=== PATIENT | male | born 1980 | race Caucasian/White ===

== ENCOUNTER 2022-07-23 13:09 | Inpatient (IN) ==
--- NOTE | 2022-07-23 13:57 | Emergency Department Note ---
Impression & Plan Schizophrenia Admission/302 ED Provider Note HPI: The patient is a 42-year-old gentleman with history of schizophrenia, presents emergency department for evaluation after 302 was filed by his father. Patient states he lives with his mother and his father. He tells me he does not know why he is here and he was brought by police. He was apparently brought in after 302 was filed by his father, states the patient has been having more aggressive outbursts at home, he has not followed up with his psychiatry appointments as they were scheduled. Patient states that he has been feeling more stressed at home recently and he does admit to having aggressive outburst but denies any intent to harm himself or anyone else. On arrival here to the ED the patient is in no acute distress. He does appear to be responding to some internal stimuli at times with delayed response to my questioning however he does answer my questions appropriately. He states he is hearing voices that "harassed me" but he states they are not telling him to do anything such as harm himself. ROS: - Per HPI *Outpatient medications and allergy history reviewed. *Pertinent external medical records reviewed. PE: General: Alert HEENT: Normocephalic, trachea midline Eyes: Extraocular eye movement is intact, no scleral erythema Pulmonary: Clear to auscultation bilaterally, no wheezing Cardio: Regular rate and rhythm GI: Abdomen is soft, nontender : No suprapubic tenderness MSK: No evidence of trauma or malformation of the extremities, no edema Skin: No evidence of rash Neuro: Alert, no focal deficits Psychiatric: Cooperative, slight delay in questioning response, appears to be re sponding to internal stimuli Interventions provided in ED: -Ativan Medical Decision Making: The patient is a 42-year-old male with history of schizophrenia, presents emergency department with a chief complaint of 302 that was filed by father. Father and mother who the patient lives with apparently no longer feels safe with the patient at home. He has been exhibiting threatening behavior recently and has had frequent aggressive outbursts at home. Patient states he is hearing voices that are making him feel "stressed" and he is also saying that the voices are saying negative things but they are not commanding him to commit harm to himself or anyone else. On arrival here to the ED the patient is calm, he is a somewhat limited historian and does not display great insight into his current condition, states he does not know why he is here. He states he is hearing voices. He does have delay with answers to my questions and does appear to be responding to internal stimuli during my evaluation. 302 was filed by the patient's father, parents were contacted by case management following medical clearance here in the ED, they state they absolutely do not feel comfortable with the patient returning home, patient does live with them primarily. They state the patient has had increasing aggressive outbursts at home, they fear for their own safety and they feel the patient does need inpatient care. Patient does not been aggressive with staff here although given his history and reliability of the parents, it does appear appropriate that 302 be upheld. Patient was given a dose of oral Ativan while here in the ED as he was beginning to feel anxious, 302 was upheld and signed by myself. Bed search will be initiated. Patient was signed out to my colleague at change of shift pending ongoing bed search and further care. Diagnosis: 1. Acute psychosis 2. Paranoid schizophrenia 3. Noncompliance with psychiatric medical visits 4. Threatening behavior towards parents/302 Disposition: Admission/302 Aaron Osborne DO Emergency Medicine Past Med/Surg History Medical History (Updated 07/23/22 @ 16:13 by Aaron Osborne DO) Lyme disease Schizophrenia Social History Smoking Status: Never smoker Communication Ability: Effective Current Living Situation: Family Feels Safe at Home: Yes Allergies Allergies Allergy/AdvReac Type Severity Reaction Status Date / Time wheat AdvReac Unknown Verified 07/23/22 14:39 Home Meds Home Medications Medication Instructions Recorded Confirmed olanzapine 5 mg tablet 5 mg PO DAILY PRN Hallucinations 07/23/22 07/23/22 paliperidone palm (3-month) 819 819 mg IM DIRECTED 07/23/22 07/23/22 mg/2.63 mL intramuscular syringe (Invega Heidyza) Results & Data (ED) Vital Signs Vital Signs - 24 hr 07/23/22 13:09 Temperature 36.6 C Temperature Source Oral Pulse Rate 86 Respiratory Rate 19 Respiratory Effort / Characteristics Non-Labored Spontaneous Respiratory Depth Normal Blood Pressure 130/81 Blood Pressure Mean 97 Pulse Oximetry 96 Oxygen Delivery Method Room Air Sepsis Recent Fever Within 48 Hours No Sepsis New/Unexplained Change in Mental Status No Sepsis Action Taken by Nursing No Action Required Laboratory Data 07/23/22 14:28 07/23/22 14:28 Lab Results 07/23/22 07/23/22 07/23/22 Range/Units 13:38 13:38 14:11 WBC (4.8-10.8) K/ul RBC (4.63-6.08) M/uL Hgb (14.0-18.0) g/dl Hct (40.1-51.0) % MCV (80.0-100.0) fL MCH (25.0-34.0) pg MCHC (32.0-36.0) g/dL RDW Std Deviation (36.4-46.3) fL RDW Coeff of Murphy (11.5-14.5) % Plt Count (130-400) K/uL MPV (9.4-12.4) fL Immature Gran % (Auto) % Neut % (Auto) % Lymph % (Auto) % [place] % (Auto) % Eos % (Auto) % Baso % (Auto) % Neut # (Auto) (1.4-6.5) K/uL Lymph # (Auto) (1.2-3.4) K/uL [place] # (Auto) (0.24-0.82) K/uL Eos # (Auto) (0-0.50) K/uL Baso # (Auto) (0-0.2) K/uL Immature Gran # (Auto) (0.00-0.02) K/uL Sodium (136-145) mmol/L Potassium (3.5-5.1) mmol/L Chloride (98-107) mmol/L Carbon Dioxide (21-32) mmol/L Anion Gap (3-11) BUN (6-23) mg/dl Creatinine (0.6-1.4) mg/dl Est Cr Clr Drug Dosing ml/min Est GFR ( Amer) ml/min Est GFR (Non-Af Amer) ml/min BUN/Creatinine Ratio (10-20) Glucose (70-99(Fasting)) mg/dl Calcium (8.5-10.1) mg/dl Total Bilirubin (0.2-1.0) mg/dl AST (13-39) U/L ALT (7-52) U/L Alkaline Phosphatase (34-104) U/L Total Protein (6.0-8.3) gm/dl Albumin (3.4-5.0) gm/dl Globulin (2.5-4.0) gm/dl Albumin/Globulin Ratio (0.9-2) TSH (0.300-4.500) uIu/ml Urine Color Yellow Urine Appearance Clear (Clear) Urine pH 6.5 (4.5-7.5) Ur Specific Cranks 1.010 (1.000-1.030) Urine Protein Negative (Negative) Urine Glucose (UA) Negative (Negative) Urine Ketones 1+ H (Negative) Urine Blood Negative (Negative) Urine Nitrite Negative (Negative) Urine Bilirubin Negative (Negative) Urine Urobilinogen Negative (Negative) Ur Leukocyte Esterase Negative (Negative) Salicylates (3.0-30) mg/dl Urine Opiates Screen Neg (Neg) Ur Methadone, Qual Neg (Neg) Acetaminophen (10-30) ug/ml Urine Barbiturates Neg (Neg) Ur Phencyclidine (PCP) Neg (Neg) U Amphetamin/Meth Scrn Neg (Neg) MDMA (Ecstasy) Screen Neg (Neg) U Benzodiazepines Scrn Neg (Neg) Ur Cocaine Metabolite Neg (Neg) U Marijuana (THC) Screen Pos H (Neg) Ethyl Alcohol mg/dL (<10.0) mg/dl SARS-CoV-2, RNA, NAAT NEGATIVE (NEGATIVE) 07/23/22 07/23/22 07/23/22 Range/Units 14:28 14:28 14:28 WBC 8.53 (4.8-10.8) K/ul RBC 5.34 (4.63-6.08) M/uL Hgb 15.4 (14.0-18.0) g/dl Hct 44.9 (40.1-51.0) % MCV 84.1 (80.0-100.0) fL MCH 28.8 (25.0-34.0) pg MCHC 34.3 (32.0-36.0) g/dL RDW Std Deviation 38.6 (36.4-46.3) fL RDW Coeff of Murphy 12.8 (11.5-14.5) % Plt Count 215 (130-400) K/uL MPV 10.2 (9.4-12.4) fL Immature Gran % (Auto) 0.2 % Neut % (Auto) 74.4 % Lymph % (Auto) 18.2 % [place] % (Auto) 6.6 % Eos % (Auto) 0.4 % Baso % (Auto) 0.2 % Neut # (Auto) 6.35 (1.4-6.5) K/uL Lymph # (Auto) 1.55 (1.2-3.4) K/uL [place] # (Auto) 0.56 (0.24-0.82) K/uL Eos # (Auto) 0.03 (0-0.50) K/uL Baso # (Auto) 0.02 (0-0.2) K/uL Immature Gran # (Auto) 0.02 (0.00-0.02) K/uL Sodium 140 (136-145) mmol/L Potassium 4.1 (3.5-5.1) mmol/L Chloride 106 (98-107) mmol/L Carbon Dioxide 28 (21-32) mmol/L Anion Gap 6 (3-11) BUN 9 (6-23) mg/dl Creatinine 0.86 (0.6-1.4) mg/dl Est Cr Clr Drug Dosing 120.4 ml/min Est GFR ( Amer) 124.8 ml/min Est GFR (Non-Af Amer) 107.7 ml/min BUN/Creatinine Ratio 10.5 (10-20) Glucose 104 H (70-99(Fasting)) mg/dl Calcium 9.5 (8.5-10.1) mg/dl Total Bilirubin 0.6 (0.2-1.0) mg/dl AST 23 (13-39) U/L ALT 17 (7-52) U/L Alkaline Phosphatase 49 (34-104) U/L Total Protein 7.4 (6.0-8.3) gm/dl Albumin 4.4 (3.4-5.0) gm/dl Globulin 3.0 (2.5-4.0) gm/dl Albumin/Globulin Ratio 1.5 (0.9-2) TSH 2.189 (0.300-4.500) uIu/ml Urine Color Urine Appearance (Clear) Urine pH (4.5-7.5) Ur Specific Cranks (1.000-1.030) Urine Protein (Negative) Urine Glucose (UA) (Negative) Urine Ketones (Negative) Urine Blood (Negative) Urine Nitrite (Negative) Urine Bilirubin (Negative) Urine Urobilinogen (Negative) Ur Leukocyte Esterase (Negative) Salicylates (3.0-30) mg/dl Urine Opiates Screen (Neg) Ur Methadone, Qual (Neg) Acetaminophen (10-30) ug/ml Urine Barbiturates (Neg) Ur Phencyclidine (PCP) (Neg) U Amphetamin/Meth Scrn (Neg) MDMA (Ecstasy) Screen (Neg) U Benzodiazepines Scrn (Neg) Ur Cocaine Metabolite (Neg) U Marijuana (THC) Screen (Neg) Ethyl Alcohol mg/dL (<10.0) mg/dl SARS-CoV-2, RNA, NAAT (NEGATIVE) 07/23/22 07/23/22 Range/Units 14:28 14:28 WBC (4.8-10.8) K/ul RBC (4.63-6.08) M/uL Hgb (14.0-18.0) g/dl Hct (40.1-51.0) % MCV (80.0-100.0) fL MCH (25.0-34.0) pg MCHC (32.0-36.0) g/dL RDW Std Deviation (36.4-46.3) fL RDW Coeff of Murphy (11.5-14.5) % Plt Count (130-400) K/uL MPV (9.4-12.4) fL Immature Gran % (Auto) % Neut % (Auto) % Lymph % (Auto) % [place] % (Auto) % Eos % (Auto) % Baso % (Auto) % Neut # (Auto) (1.4-6.5) K/uL Lymph # (Auto) (1.2-3.4) K/uL [place] # (Auto) (0.24-0.82) K/uL Eos # (Auto) (0-0.50) K/uL Baso # (Auto) (0-0.2) K/uL Immature Gran # (Auto) (0.00-0.02) K/uL Sodium (136-145) mmol/L Potassium (3.5-5.1) mmol/L Chloride (98-107) mmol/L Carbon Dioxide (21-32) mmol/L Anion Gap (3-11) BUN (6-23) mg/dl Creatinine (0.6-1.4) mg/dl Est Cr Clr Drug Dosing ml/min Est GFR ( Amer) ml/min Est GFR (Non-Af Amer) ml/min BUN/Creatinine Ratio (10-20) Glucose (70-99(Fasting)) mg/dl Calcium (8.5-10.1) mg/dl Total Bilirubin (0.2-1.0) mg/dl AST (13-39) U/L ALT (7-52) U/L Alkaline Phosphatase (34-104) U/L Total Protein (6.0-8.3) gm/dl Albumin (3.4-5.0) gm/dl Globulin (2.5-4.0) gm/dl Albumin/Globulin Ratio (0.9-2) TSH (0.300-4.500) uIu/ml Urine Color Urine Appearance (Clear) Urine pH (4.5-7.5) Ur Specific Cranks (1.000-1.030) Urine Protein (Negative) Urine Glucose (UA) (Negative) Urine Ketones (Negative) Urine Blood (Negative) Urine Nitrite (Negative) Urine Bilirubin (Negative) Urine Urobilinogen (Negative) Ur Leukocyte Esterase (Negative) Salicylates < 3.0 L (3.0-30) mg/dl Urine Opiates Screen (Neg) Ur Methadone, Qual (Neg) Acetaminophen < 3 L (10-30) ug/ml Urine Barbiturates (Neg) Ur Phencyclidine (PCP) (Neg) U Amphetamin/Meth Scrn (Neg) MDMA (Ecstasy) Screen (Neg) U Benzodiazepines Scrn (Neg) Ur Cocaine Metabolite (Neg) U Marijuana (THC) Screen (Neg) Ethyl Alcohol mg/dL < 10.0 (<10.0) mg/dl SARS-CoV-2, RNA, NAAT (NEGATIVE) Administered Medications Discontinued Medications Lorazepam (Lorazepam 1 Mg Tab) 1 mg PO NOW STA Stop: 07/23/22 15:42 Last Admin: 07/23/22 15:48 Dose: 1 mg Documented By: AP Discharge Plan Visit Data Chief Complaint: Mental Health Evaluation Stated Complaint: [facility] ED Provider: Aaron Osborne Discharge Problem: Schizophrenia Patient Disposition: Still a Patient Forms Stand Alone Forms: My [facility] [address], Suicide Prevention Resources, Virtual Emergency Department, Important Visit Information Prescriptions Prescriptions: No Action olanzapine 5 mg tablet 5 mg PO DAILY PRN (Reason: Hallucinations) Invega Trinza 819 mg/2.63 mL syringe 819 mg IM DIRECTED Rx Instructions: One injection IM every 3 months; last was 06/21/22 Referrals Referrals: PCP,NO [Primary Care Provider] -
[2022-07-23 14:07] LABS: Appearance Urine Clear (Clear); Bilirubin Urine Negative (Negative); Blood Urine Negative (Negative); Color Urine Yellow; Glucose Urine UA Negative (Negative); Ketones Urine 1+ (Negative); Leukocyte Esterase Urine Negative (Negative); Nitrite Urine Negative (Negative); Protein Urine Negative (Negative); Urobilinogen Urine Negative (Negative); pH Urine 6.5 (4.5-7.5)
[2022-07-23 14:39] LABS: Basophils # (auto) 0.02 K/uL (0-0.2); Basophils % (auto) 0.2 %; Eosinophils # (auto) 0.03 K/uL (0-0.50); Eosinophils % (auto) 0.4 %; Hematocrit (blood only) 44.9 % (40.1-51.0); Hemoglobin 15.4 g/dl (14.0-18.0); Immature Granulocytes # (auto) 0.02 K/uL (0.00-0.02); Immature Granulocytes % (auto) 0.2 %; Lymphocytes # (auto) 1.55 K/uL (1.2-3.4); Lymphocytes % (auto) 18.2 %; Mean Corpuscular Hemoglobin 28.8 pg (25.0-34.0); Mean Corpuscular Hgb Conc 34.3 g/dL (32.0-36.0); Mean Corpuscular Volume 84.1 fL (80.0-100.0); Mean Platelet Volume 10.2 fL (9.4-12.4); Monocytes # (auto) 0.56 K/uL (0.24-0.82); Monocytes % (auto) 6.6 %; Neutrophils # (auto) 6.35 K/uL (1.4-6.5); Neutrophils % (auto) 74.4 %; Platelet Count 215 K/uL (130-400); RDW Coefficient of Variation 12.8 % (11.5-14.5); RDW Standard Deviation 38.6 fL (36.4-46.3); Red Blood Count 5.34 M/uL (4.63-6.08); White Blood Count 8.53 K/ul (4.8-10.8)
[2022-07-23 14:40] LABS: Amphetamines+Metham, Urine Neg (Neg); Barbiturates, Urine Neg (Neg); Benzodiazepine, Urine Neg (Neg); Cocaine, Urine Neg (Neg); MDMA (Ecstacy), Urine Neg (Neg); Methadone, Urine Neg (Neg); Opiate, Urine Neg (Neg); Phencyclidine, Urine Neg (Neg)
[2022-07-23 15:12] LABS: Albumin Globulin Ratio 1.5 (0.9-2); Albumin Level 4.4 gm/dl (3.4-5.0); BUN Creatinine Ratio 10.5 (10-20); Bilirubin,Total 0.6 mg/dl (0.2-1.0); Calcium 9.5 mg/dl (8.5-10.1); Creatinine Clr Calc Pharmacy 120.4 ml/min; Est GFR (African American) 124.8 ml/min; Est GFR (Non-African American) 107.7 ml/min; Potassium 4.1 mmol/L (3.5-5.1); Total Protein 7.4 gm/dl (6.0-8.3)
[2022-07-23 15:31] LABS: Acetaminophen < 3 ug/ml (10-30); Salicylate < 3.0 mg/dl (3.0-30)
[2022-07-23] MEDS ORDERED: LORazepam 1 MG TAB PO STA (15:41)
[2022-07-23] MEDS ORDERED: OLANZapine 5 MG TABLET PO PRN (17:05)
--- NOTE | 2022-07-24 00:20 | Emergency Department Note ---
ED Visit Note Patient is a 42-year-old male who presents to the ER for threatening behavior at home as well as hearing voices. Parents feel unsafe. He was medically cleared and given Ativan. 302 was signed per report as I received signout from Dr. Pérez. Patient was signed out to Dr. Rodgers at change of shift. . : Schizophrenia Qualifiers: Schizophrenia type: unspecified Qualified Code(s): F20.9 - Schizophrenia, unspecified
--- NOTE | 2022-07-24 05:00 | Emergency Department Note ---
ED Visit Note Psychiatric observation note, hourly shift emergency department note patient was turned over to me by Dr. Strange for this patient having psychosis under 302 currently is waiting for bed placement. There were no issues during the emergency department hourly shift observation status. Disposition is still pending at the time of this dictation . : Schizophrenia Qualifiers: Schizophrenia type: unspecified Qualified Code(s): F20.9 - Schizophrenia, unspecified
[2022-07-24] MEDS ORDERED: SODIUM CHLORIDE 0.65% NA SOLN 45 ML (OCEAN) PRN (13:35)
[2022-07-24] MEDS ORDERED: BISMUTH SUBSALICYLATE LIQD 236 ML PO PRN (13:35)
[2022-07-24] MEDS ORDERED: ALUMINUM/MAGNESIUM SUSP 30 ML UDC PO PRN (13:35)
[2022-07-24] MEDS ORDERED: MAGNESIUM HYDROXIDE SUSP 30 ML UDC PO PRN (13:35)
[2022-07-24] MEDS ORDERED: ACETAMINOPHEN 325 MG TAB PO PRN (13:35)
[2022-07-24] MEDS ORDERED: hydrOXYzine HCl 25 MG TAB PO PRN ×2 (13:35)
[2022-07-24] MEDS ORDERED: OLANZapine 5 MG TABLET PO PRN (15:32)
[2022-07-24] MEDS ORDERED: BENZTROPINE MESYLATE 1 MG TAB PO PRN (15:33)
--- NOTE | 2022-07-24 15:43 | Emergency Department Note ---
ED Visit Note Patient signed out to me at change of shift from Dr. Rodgers. Bed search suspended overnight. Patient previously medically cleared. Patient here is a 302 which was upheld. He was given his usual home meds. No issues reported me during the course of my shift. Patient ultimately admitted to 3 S. . : Schizophrenia Qualifiers: Schizophrenia type: unspecified Qualified Code(s): F20.9 - Schizophrenia, unspecified
--- NOTE | 2022-07-24 17:13 | History & Physical ---
Date of Service July 24, 2022 Impression / Recommendations Impression 42 yo male with 20 yr. hx of psychosis, maintained largely in community in past 10 years on LEÓN. Last contact in ED 2019 with reference to worsening of symptoms in context of MJ use which still appears to be a contributing factor in addition to family dynamics. Cooperative overnight in ED without additional prn. (1) Schizophrenia: Schizophrenia type: unspecified Qualified Code(s): F20.9 - Schizophrenia, unspecified Plan The patient was admitted to the [facility] ([facility] mental [facility]) on q15 min checks (behavioral with suicide precautions) for safety. The patient will participate in group, recreational, and milieu therapies and will be offered additional individual and family sessions as clinically appropriate. fasting labs in am. Consider adjunctive Haldol as could also be given LEÓN whereas clozaril though appropriate would require monitoring. Will confirm timing of Trinza with [facility] when office reopens. Suspect medical MJ a contributing factor and will have forced abstinence while in hospital and provide counseling re: such during course of care. Unlikely to meet criteria for 303 extended commitment. Will engage family and community supports. Inventory Assets Strengths: supportive family, cooperative with 302 process Needs: improve coping skills, decrease Medical MJ use Suicide Risk Level Suicide Risk Level: Low (q15 min observation checks) Risk Factors Assessment Male: Yes : Yes Mental Health Diagnoses: Yes Previous Psychiatric Hospitalization: Yes Protective Factors Assessment Employed: No Supportive Family: Yes Psychiatric History Identifying Data MONSE GALINDO is a 42-year-old M who currently lives in [place], has a 20-year history of schizophrenia, and was admitted on 07/24/22 13:35 on a 302 voluntary commitment for auditory medrano and irritability at home. Chief Complaint "I understand my parents don't want me home until I do inpatient". History of Present Illness Patiet boarded in ED overnight without incident. Although he did not necessarily see indication for admission as "they misunderstood, I was yelling at the voices, not my parents." He doesn't argue with the statements provided by parents. They expressed concerns via 302 petition that he has missed several appointments with his outpatient prescriber and that his quarterly Invega trinza is not working as well. He has expressed increasing anger toward parents and swearing which is not his baseline and they worry that he could become physically aggressive. He has some history of shoving them during arguments (last 3 years ago). He has some auditory hallucinations at baseline, he denies that they are command in nature at this time. There are concerns that he is overusing his medical MJ. Past Psychiatric History Current Psychiatric Diagnosis: Paranoid Schizophrenia Outpatient Services: [facility] Previous Psych Admissions: [facility] ?2010 History of Previous Suicide Attempt: No Past Medication Trials: patient unable to list, not Clozaril per family Allergies Allergy/AdvReac Type Severity Reaction Status Date / Time wheat AdvReac Unknown Verified 07/23/22 14:39 Home Medications Medication Instructions Recorded Confirmed Type olanzapine 5 mg tablet 5 mg PO DAILY PRN Hallucinations 07/23/22 07/23/22 History paliperidone palm (3-month) 819 819 mg IM DIRECTED 07/23/22 07/23/22 History mg/2.63 mL intramuscular syringe ([facility]ga Trinza) Family History Family History of: Doesn't Know Alcohol History Hx of Alcohol Use Over the Past 12 Months: No AUDIT Total Score: 0 Smoking Use Have You Smoked or Used Tobacco Products in the Last 30 Days: No tobacco type: smokeless tobacco Smoking Status: Never smoker Substance History Hx of Prescription Med Misuse Over the Past 12 Months: No Hx of Over the Counter Med Misuse Over the Past 12 Months: No Hx of Inhalent Misuse Over the Past 12 Months: No Hx of Organic Substance Use Over the Past 12 Months: Yes (medical marijuana) Hx of Illegal Substances/Street Drug Use Over Past 12 Months: No Problems as a Result of Past Substance Use: None Identified Personal History Living Arrangements: Home Living Arrangements Comments: with parents Employment Status: Disabled Marital Status: Single Beliefs That Will Affect Care: None Current Legal Problems: No Hx Legal Problems: Yes Psychological Trauma History Comment: denied Patient History Medical History Lyme disease Schizophrenia Social History Smoking Status: Never smoker Preferred Language: Cameroonian Communication Ability: Effective [employer] W[employer] Required: No Beliefs That Will Affect Care: None Current Living Situation: Family Feels Safe at Home: Yes Gender Identity: Male Assistive Devices: None Review of Systems Review of Systems: All systems reviewed & are unremarkable except as noted in HPI & below Physical Exam Psychiatric: Orientation: alert and oriented x 3 Apperance: appropriately dressed and appropriately groomed Eye Contact: + poor eye contact Motor Behavior: no abnormal motor movements Speech: normal rate/rhythm/volume of speech (but limited spontaneity) Affect: + blunted affect Mood: no irritable mood Thought Process: + concrete thought process Thought Content: reality based without delusions Suicidal Thoughts: denies suicidal thoughts Homicidal Thoughts: denies homicidal thoughts Hallucinations: + auditory hallucinations (non specific, did not appear to be responding to int stim at time of assess); no visual hallucinations Cognition: attention grossly intact and language grossly intact Estimated Intelligence: consistent with education level Insight: + limited insight Judgement: + limited judgement Vital Signs (Past 24 Hours): Last Vital Signs Temp 37.0 C 07/24/22 15:28 Pulse 90 07/24/22 15:28 Resp 20 07/24/22 15:28 BP 132/81 07/24/22 15:28 Pulse Ox 98 07/24/22 15:28 O2 Del Method 07/24/22 15:28 Exam Statement: . A physical exam was performed in the ED by Dr. Osborne for the purposes of medical clearance. I accept that physical as correct and adequate for the purposes of the inpatient physical exam. Results & Data ([facility]) Laboratory Results Labs 07/23/22 07/23/22 07/23/22 13:38 13:38 14:11 WBC RBC Hgb Hct MCV MCH MCHC RDW Std Deviation RDW Coeff of Murphy Plt Count MPV Immature Gran % (Auto) Neut % (Auto) Lymph % (Auto) [place] % (Auto) Eos % (Auto) Baso % (Auto) Neut # (Auto) Lymph # (Auto) [place] # (Auto) Eos # (Auto) Baso # (Auto) Immature Gran # (Auto) Sodium Potassium Chloride Carbon Dioxide Anion Gap BUN Creatinine Est Cr Clr Drug Dosing Est GFR ( Amer) Est GFR (Non-Af Amer) BUN/Creatinine Ratio Glucose Calcium Total Bilirubin AST ALT Alkaline Phosphatase Total Protein Albumin Globulin Albumin/Globulin Ratio TSH Urine Color Yellow Urine Appearance Clear Urine pH 6.5 Ur Specific [place] 1.010 Urine Protein Negative Urine Glucose (UA) Negative Urine Ketones 1+ H Urine Blood Negative Urine Nitrite Negative Urine Bilirubin Negative Urine Urobilinogen Negative Ur Leukocyte Esterase Negative Salicylates Urine Opiates Screen Neg Ur Methadone, Qual Neg Acetaminophen Urine Barbiturates Neg Ur Phencyclidine (PCP) Neg U Amphetamin/Meth Scrn Neg MDMA (Ecstasy) Screen Neg U Benzodiazepines Scrn Neg Ur Cocaine Metabolite Neg U Marijuana (THC) Screen Pos H Ethyl Alcohol mg/dL SARS-CoV-2, RNA, NAAT NEGATIVE 07/23/22 07/23/22 07/23/22 14:28 14:28 14:28 WBC 8.53 RBC 5.34 Hgb 15.4 Hct 44.9 MCV 84.1 MCH 28.8 MCHC 34.3 RDW Std Deviation 38.6 RDW Coeff of Murphy 12.8 Plt Count 215 MPV 10.2 Immature Gran % (Auto) 0.2 Neut % (Auto) 74.4 Lymph % (Auto) 18.2 [place] % (Auto) 6.6 Eos % (Auto) 0.4 Baso % (Auto) 0.2 Neut # (Auto) 6.35 Lymph # (Auto) 1.55 [place] # (Auto) 0.56 Eos # (Auto) 0.03 Baso # (Auto) 0.02 Immature Gran # (Auto) 0.02 Sodium 140 Potassium 4.1 Chloride 106 Carbon Dioxide 28 Anion Gap 6 BUN 9 Creatinine 0.86 Est Cr Clr Drug Dosing 120.4 Est GFR ( Amer) 124.8 Est GFR (Non-Af Amer) 107.7 BUN/Creatinine Ratio 10.5 Glucose 104 H Calcium 9.5 Total Bilirubin 0.6 AST 23 ALT 17 Alkaline Phosphatase 49 Total Protein 7.4 Albumin 4.4 Globulin 3.0 Albumin/Globulin Ratio 1.5 TSH 2.189 Urine Color Urine Appearance Urine pH Ur Specific [place] Urine Protein Urine Glucose (UA) Urine Ketones Urine Blood Urine Nitrite Urine Bilirubin Urine Urobilinogen Ur Leukocyte Esterase Salicylates Urine Opiates Screen Ur Methadone, Qual Acetaminophen Urine Barbiturates Ur Phencyclidine (PCP) U Amphetamin/Meth Scrn MDMA (Ecstasy) Screen U Benzodiazepines Scrn Ur Cocaine Metabolite U Marijuana (THC) Screen Ethyl Alcohol mg/dL SARS-CoV-2, RNA, NAAT 07/23/22 07/23/22 14:28 14:28 WBC RBC Hgb Hct MCV MCH MCHC RDW Std Deviation RDW Coeff of Murphy Plt Count MPV Immature Gran % (Auto) Neut % (Auto) Lymph % (Auto) [place] % (Auto) Eos % (Auto) Baso % (Auto) Neut # (Auto) Lymph # (Auto) [place] # (Auto) Eos # (Auto) Baso # (Auto) Immature Gran # (Auto) Sodium Potassium Chloride Carbon Dioxide Anion Gap BUN Creatinine Est Cr Clr Drug Dosing Est GFR ( Amer) Est GFR (Non-Af Amer) BUN/Creatinine Ratio Glucose Calcium Total Bilirubin AST ALT Alkaline Phosphatase Total Protein Albumin Globulin Albumin/Globulin Ratio TSH Urine Color Urine Appearance Urine pH Ur Specific [place] Urine Protein Urine Glucose (UA) Urine Ketones Urine Blood Urine Nitrite Urine Bilirubin Urine Urobilinogen Ur Leukocyte Esterase Salicylates < 3.0 L Urine Opiates Screen Ur Methadone, Qual Acetaminophen < 3 L Urine Barbiturates Ur Phencyclidine (PCP) U Amphetamin/Meth Scrn MDMA (Ecstasy) Screen U Benzodiazepines Scrn Ur Cocaine Metabolite U Marijuana (THC) Screen Ethyl Alcohol mg/dL < 10.0 SARS-CoV-2, RNA, NAAT Current Inpatient Medications Current Inpatient Medications: Current Inpatient Medications Acetaminophen (Acetaminophen 325 Mg Tab) 650 mg PO Q4H PRN PRN Reason: Headache or Minor Fever Stop: 08/23/22 13:34 Al Hydrox/Mg Hydrox/Simethicone (Aluminum/Magnesium Susp 30 Ml Udc) 30 ml PO Q4H PRN PRN Reason: GI Upset Stop: 08/23/22 13:34 Benztropine Mesylate (Benztropine Mesylate 1 Mg Tab) 1 mg PO Q8H PRN PRN Reason: Muscle Spasm Stop: 08/23/22 15:32 Bismuth Subsalicylate (Bismuth Subsalicylate Liqd 236 Ml) 15 ml PO PRN PRN PRN Reason: Loose Stool Stop: 08/23/22 13:34 Hydroxyzine HCl (Hydroxyzine Hcl 25 Mg Tab) 50 mg PO HSZ PRN PRN Reason: Insomnia Stop: 08/23/22 13:34 Hydroxyzine HCl (Hydroxyzine Hcl 25 Mg Tab) 25 mg PO Q4H PRN PRN Reason: Anxiety Stop: 08/23/22 13:34 Lorazepam (Lorazepam 1 Mg Tab) 1 mg PO Q4H PRN PRN Reason: Anxiety/Agitation Stop: 08/23/22 15:30 Magnesium Hydroxide (Magnesium Hydroxide Susp 30 Ml Udc) 30 ml PO DAILY PRN PRN Reason: Constipation Stop: 08/23/22 13:34 Olanzapine (Olanzapine 5 Mg Tablet) 5 mg PO Q6H PRN PRN Reason: Hallucinations Stop: 08/23/22 15:31 Sodium Chloride (Sodium Chloride 0.65% Na Soln 45 Ml ([place])) 1 - 2 sprays NA PRN PRN PRN Reason: Nasal Dryness/Congestion Stop: 08/23/22 13:34
[2022-07-25] MEDS: LORazepam 1 MG TAB PO PRN ×2 (01:19→11:37)
[2022-07-25 08:28] LABS: Chol HDL Ratio 4.6 (0-5)
[2022-07-25] MEDS: COUGH DROP (SUGAR FREE) LOZ 24 LOZ/1 BOX BUCCAL PRN (10:35)
--- NOTE | 2022-07-25 14:14 | Psychiatric Progress Note ---
Date of Service July 25, 2022 Impression / Recommendations Impression 42 yo male with 20 yr. hx of psychosis, maintained largely in community in past 10 years on LEÓN. Last contact in ED 2019 with reference to worsening of symptoms in context of MJ use which still appears to be a contributing factor in addition to family dynamics. MNPR due to severity of psychosis, 302 (1) Schizophrenia: Plan 07/25/2022: Zyprexa 5 mg hs standing. Briefly discussed clozaril trial and patient is adamantly against. 2 witness ROIs due to paranoia, voiced good understanding for need for coordination of care. 07/24/2022: The patient was admitted to the [facility] ([facility] inpatient mental health unit) on q15 min checks (behavioral with suicide precautions) for safety. The patient will participate in group, recreational, and milieu therapies and w ill be offered additional individual and family sessions as clinically appropriate. fasting labs in am. Consider adjunctive Haldol as could also be given LEÓN whereas clozaril though appropriate would require monitoring. Will confirm timing of Trinza with [facility] when office reopens. Suspect medical MJ a contributing factor and will have forced abstinence while in hospital and provide counseling re: such during course of care. Unlikely to meet criteria for 303 extended commitment. Will engage family and community supports. Inventory Assets Strengths: supportive family, cooperative with 302 process Needs: improve coping skills, decrease Medical MJ use Suicide Risk Level Suicide Risk Level: Low (q15 min observation checks) Risk Factors Assessment Male: Yes : Yes Do You Have Access To A Gun?: No Mental Health Diagnoses: Yes Previous Psychiatric Hospitalization: Yes Protective Factors Assessment Employed: No Supportive Family: Yes Interval History Identifying Information MONSE GALINDO is a 42-year-old M who currently lives in [place], has a 20-year history of schizophrenia, and was admitted on 07/24/22 13:35 on a 302 voluntary commitment for auditory medrano and irritability at home. Chief Complaint "I thought you wanted them to make decisions for me, I'm fine with you talking to them". referring to parents Review of Systems Sleep Information Total Hours of Sleep: 6.5 Meal Information Percent Meal Consumed - Breakfast: 75 Percent Meal Consumed - Lunch: 100 Percent Meal Consumed - Dinner: 70 Subjective Subjective Patient was seen & assessed and interval progress reviewed with nursing and social work. Patient agreeable to set up family meeting. Patient appears anxious at times, continues to report intermittent voices, open to discussion about impact of medical MJ on his condition. States "I should probably cut back", denies recent change in preparations, doesn't seem particularly knowledgeable about THC vs CBD ratios as harm avoidance. Patient feels that Zyprexa is helpful and is willing to take it scheduled at hs. Somewhat paranoid about PCP appointment, discussed importance of f/u given his need for monitoring for lipids/etc. Physical Exam Psychiatric Orientation: alert and oriented x 3 Apperance: appropriately dressed and appropriately groomed Eye Contact: + fair eye contact Motor Behavior: no abnormal motor movements Speech: normal rate/rhythm/volume of speech (but limited spontaneity) Affect: + anxious affect Mood: no irritable mood Thought Process: + concrete thought process Thought Content: reality based without delusions Suicidal Thoughts: denies suicidal thoughts Homicidal Thoughts: denies homicidal thoughts Hallucinations: + auditory hallucinations (non specific, did not appear to be responding to int stim at time of assess); no visual hallucinations Cognition: attention grossly intact and language grossly intact Estimated Intelligence: consistent with education level Insight: + limited insight Judgement: + limited judgement Vital Signs (Past 24 Hours) Last Vital Signs Temp 37.1 C 07/25/22 06:00 Pulse 78 07/25/22 06:00 Resp 18 07/25/22 06:00 BP 128/76 07/25/22 06:43 Pulse Ox 96 07/25/22 06:00 O2 Del Method 07/25/22 06:00 Results & Data ([facility]) Laboratory Results Laboratory Results - last 24 hr 07/25/22 07:16 Fasting Glucose 95 Triglycerides 83 Cholesterol 220 H LDL Cholesterol, Calc 155 VLDL Cholesterol, Calc 17 HDL Cholesterol 48 Cholesterol/HDL Ratio 4.6 Current Inpatient Medications Current Inpatient Medications: Current Inpatient Medications Acetaminophen (Acetaminophen 325 Mg Tab) 650 mg PO Q4H PRN PRN Reason: Headache or Minor Fever Stop: 08/23/22 13:34 Al Hydrox/Mg Hydrox/Simethicone (Aluminum/Magnesium Susp 30 Ml Udc) 30 ml PO Q4H PRN PRN Reason: GI Upset Stop: 08/23/22 13:34 Benztropine Mesylate (Benztropine Mesylate 1 Mg Tab) 1 mg PO Q8H PRN PRN Reason: Muscle Spasm Stop: 08/23/22 15:32 Bismuth Subsalicylate (Bismuth Subsalicylate Liqd 236 Ml) 15 ml PO PRN PRN PRN Reason: Loose Stool Stop: 08/23/22 13:34 Hydroxyzine HCl (Hydroxyzine Hcl 25 Mg Tab) 50 mg PO HSZ PRN PRN Reason: Insomnia Stop: 08/23/22 13:34 Last Admin: 07/25/22 00:38 Dose: 50 mg Hydroxyzine HCl (Hydroxyzine Hcl 25 Mg Tab) 25 mg PO Q4H PRN PRN Reason: Anxiety Stop: 08/23/22 13:34 Lorazepam (Lorazepam 1 Mg Tab) 1 mg PO Q4H PRN PRN Reason: Anxiety/Agitation Stop: 08/23/22 15:30 Last Admin: 07/25/22 11:37 Dose: 1 mg Magnesium Hydroxide (Magnesium Hydroxide Susp 30 Ml Udc) 30 ml PO DAILY PRN PRN Reason: Constipation Stop: 08/23/22 13:34 Menthol (Cough Drop (Sugar Free) Yoel 24 Yoel/1 Box) 1 yoel BUCCAL Q1HWA PRN PRN Reason: Sore Throat Stop: 08/24/22 09:58 Last Admin: 07/25/22 10:35 Dose: 1 yoel Olanzapine (Olanzapine 5 Mg Tablet) 5 mg PO Q6H PRN PRN Reason: Hallucinations Stop: 08/23/22 15:31 Olanzapine (Olanzapine 5 Mg Tablet) 5 mg PO HS KAYODE Stop: 08/24/22 21:59 Sodium Chloride (Sodium Chloride 0.65% Na Soln 45 Ml ([place])) 1 - 2 sprays NA PRN PRN PRN Reason: Nasal Dryness/Congestion Stop: 08/23/22 13:34 Mental Health & Subst Abuse Tx Therapist Name of Therapist: N/A Emergency Services Professional Name of Emergency Services Professional: N/A (1) Schizophrenia Schizophrenia type: unspecified Qualified Code(s): F20.9 - Schizophrenia, unspecified
[2022-07-25] MEDS: OLANZapine 5 MG TABLET PO SCH (20:50)
[2022-07-26 00:28] LABS: Marijuana Quant, GCMS Urine 842 ng/mL (<5)
[2022-07-26] MEDS: LORazepam 1 MG TAB PO PRN ×2 (07:54→16:47)
--- NOTE | 2022-07-26 17:46 | Psychiatric Progress Note ---
Date of Service July 26, 2022 Impression / Recommendations Impression 42 yo male with 20 yr. hx of psychosis, maintained largely in community in past 10 years on LEÓN. Last contact in ED 2019 with reference to worsening of symptoms in context of MJ use which still appears to be a contributing factor in addition to family dynamics. MNPR due to severity of psychosis, 302 07/26/21: improving (1) Schizophrenia: Plan 07/26/2022: patient declines titration of Zyprexa, family agrees he has never taken consistently ( pills from a March script, was prn). 07/25/2022: Zyprexa 5 mg hs standing. Briefly discussed clozaril trial and patient is adamantly against. 2 witness ROIs due to paranoia, voiced good understanding for need for coordination of care. 07/24/2022: The patient was admitted to the [facility] ([facility] mental health unit) on q15 min checks (behavioral with suicide precautions) for safety. The patient will participate in group, recreational, and milieu therapies and will be offered additional individual and family sessions as clinically appropriate. fasting labs in am. Consider adjunctive Haldol as could also be given LEÓN whereas clozaril though appropriate would require monitoring. Will confirm timing of Trinza with [facility] when office reopens. Suspect medical MJ a contributing factor and will have forced abstinence while in hospital and provide counseling re: such during course of care. Unlikely to meet criteria for 303 extended commitment. Will engage family and community supports. Inventory Assets Strengths: supportive family, cooperative with 302 process Needs: improve coping skills, decrease Medical MJ use Suicide Risk Level Suicide Risk Level: Low (q15 min observation checks) Risk Factors Assessment Male: Yes : Yes Do You Have Access To A Gun?: No Mental Health Diagnoses: Yes Previous Psychiatric Hospitalization: Yes Protective Factors Assessment Employed: No Supportive Family: Yes Interval History Identifying Information MONSE GALINDO is a 42-year-old M who currently lives in [place], has a 20-year history of schizophrenia, and was admitted on 07/24/22 13:35 on a 302 voluntary commitment for auditory medrano and irritability at home. Chief Complaint also participated in family meeting with parents by phone. Review of Systems Sleep Information Total Hours of Sleep: 7.75 Meal Information Percent Meal Consumed - Breakfast: 50 Percent Meal Consumed - Lunch: 90 Percent Meal Consumed - Dinner: 90 Subjective Subjective Patient was seen & assessed and interval progress reviewed with treatment team. Patient has odd cough in am again, patient reported feeling like he was being choked but denies difficulty swallowing or EPS. He states that he doesn't quite feel himself in the am but doesn't really elaborate. taking Zyprexa. Extensive discussion with his parents around harm avoidance with medical MJ given his psychosis and patient agrees to decrease frequency of use and amount of THC. He agreed to case management and taking Zyprexa on a regular basis. Reviewed risks/benefits re: clozaril. Patient reports his voices are quieter. Reviewed anticipated length of stay given 302 procedures act and inpatient criteria. Patient is adamant that he desires to return home as soon as possible. Physical Exam Psychiatric Orientation: alert Apperance: appropriately dressed and appropriately groomed Eye Contact: + poor eye contact Motor Behavior: no abnormal motor movements Speech: normal rate/rhythm/volume of speech (but limited spontaneity) Affect: + anxious affect and + blunted affect Mood: no irritable mood Thought Process: + concrete thought process Thought Content: reality based without delusions Suicidal Thoughts: denies suicidal thoughts Homicidal Thoughts: denies homicidal thoughts Hallucinations: + auditory hallucinations (non specific, did not appear to be responding to int stim at time of assess); no visual hallucinations Cognition: attention grossly intact and language grossly intact Estimated Intelligence: consistent with education level Insight: + limited insight Judgement: + limited judgement Vital Signs (Past 24 Hours) Last Vital Signs Temp 36.7 C 07/26/22 06:00 Pulse 78 07/26/22 06:00 Resp 18 07/26/22 06:00 BP 142/101 H 07/26/22 06:34 Pulse Ox 97 07/26/22 06:00 O2 Del Method 07/26/22 06:00 Results & Data ([facility]) Laboratory Results Laboratory Results - last 24 hr 07/23/22 13:38 U Marijuana THC Carboxy 842 H Drug Screen Comment SEE NOTE Current Inpatient Medications Current Inpatient Medications: Current Inpatient Medications Acetaminophen (Acetaminophen 325 Mg Tab) 650 mg PO Q4H PRN PRN Reason: Headache or Minor Fever Stop: 08/23/22 13:34 Al Hydrox/Mg Hydrox/Simethicone (Aluminum/Magnesium Susp 30 Ml Udc) 30 ml PO Q4H PRN PRN Reason: GI Upset Stop: 08/23/22 13:34 Benztropine Mesylate (Benztropine Mesylate 1 Mg Tab) 1 mg PO Q8H PRN PRN Reason: Muscle Spasm Stop: 08/23/22 15:32 Bismuth Subsalicylate (Bismuth Subsalicylate Liqd 236 Ml) 15 ml PO PRN PRN PRN Reason: Loose Stool Stop: 08/23/22 13:34 Hydroxyzine HCl (Hydroxyzine Hcl 25 Mg Tab) 50 mg PO HSZ PRN PRN Reason: Insomnia Stop: 08/23/22 13:34 Last Admin: 07/25/22 00:38 Dose: 50 mg Hydroxyzine HCl (Hydroxyzine Hcl 25 Mg Tab) 25 mg PO Q4H PRN PRN Reason: Anxiety Stop: 08/23/22 13:34 Lorazepam (Lorazepam 1 Mg Tab) 1 mg PO Q4H PRN PRN Reason: Anxiety/Agitation Stop: 08/23/22 15:30 Last Admin: 07/26/22 16:47 Dose: 1 mg Magnesium Hydroxide (Magnesium Hydroxide Susp 30 Ml Udc) 30 ml PO DAILY PRN PRN Reason: Constipation Stop: 08/23/22 13:34 Menthol (Cough Drop (Sugar Free) Yoel 24 Yoel/1 Box) 1 yoel BUCCAL Q1HWA PRN PRN Reason: Sore Throat Stop: 08/24/22 09:58 Last Admin: 07/25/22 10:35 Dose: 1 yoel Olanzapine (Olanzapine 5 Mg Tablet) 5 mg PO Q6H PRN PRN Reason: Hallucinations Stop: 08/23/22 15:31 Olanzapine (Olanzapine 5 Mg Tablet) 5 mg PO HS KAYODE Stop: 08/24/22 21:59 Last Admin: 07/25/22 20:50 Dose: 5 mg Sodium Chloride (Sodium Chloride 0.65% Na Soln 45 Ml ([place])) 1 - 2 sprays NA PRN PRN PRN Reason: Nasal Dryness/Congestion Stop: 08/23/22 13:34 Mental Health & Subst Abuse Tx Psychiatrist Name of Psychiatrist: Silverio Gaffney Psychiatrist's Date Of Appointment With Psychiatric Provider: 07/29/2022 Time of Appointment with Psychiatrist: 1:15pm Psychiatric Appointment Comment: [id number] [address] [address] Therapist Name of Therapist: N/A Electorate Officer Name of Electorate Officer: [employer] Phone Number for Electorate Officer: [phone] Case Management Appointment Comment: will follow up directly after d/c Post Discharge Appointments Primary Care Physician Name Of Family Doctor/PCP: SANDY Nolan Primary [facility] Time of Appointment with PCP: 9:45AM-arrive 15 minutes Provider Appointment Comment: [address] [place], [place] [address] [address] (1) Schizophrenia Schizophrenia type: unspecified Qualified Code(s): F20.9 - Schizophrenia, unspecified
[2022-07-26] MEDS: OLANZapine 5 MG TABLET PO SCH (22:38)
[2022-07-27] MEDS: COUGH DROP (SUGAR FREE) LOZ 24 LOZ/1 BOX BUCCAL PRN (09:32)
[2022-07-27] MEDS: LORazepam 1 MG TAB PO PRN (10:39)
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
== END 2022-07-27 13:12 | disposition home or self-care (01) | DRG 885 ==
LOC: ED 13:09 → 3S 07-24 13:35 → UNDODISIN 07-27 12:16
DX: F20.9 Schizophrenia, unspecified; Z79.899 Other long term (current) drug therapy; Z91.018 Allergy to other foods

== ENCOUNTER 2023-06-28 02:14 | Inpatient (IN) ==
[2023-06-28 03:02] LABS: Appearance Urine Clear (Clear); Bilirubin Urine Negative (Negative); Blood Urine Negative (Negative); Color Urine Yellow; Glucose Urine UA Negative (Negative); Ketones Urine Negative (Negative); Leukocyte Esterase Urine Negative (Negative); Nitrite Urine Negative (Negative); Protein Urine Negative (Negative); Specific Gravity Urine 1.005 (1.000-1.030); Urobilinogen Urine Negative (Negative)
[2023-06-28 03:05] LABS: Basophils # (auto) 0.04 K/uL (0.00-0.20); Basophils % (auto) 0.3 %; Eosinophils # (auto) 0.04 K/uL (0.00-0.50); Eosinophils % (auto) 0.3 %; Hematocrit (blood only) 48.2 % (42.0-52.0); Hemoglobin 16.2 g/dl (14.0-18.0); Immature Granulocytes # (auto) 0.04 K/uL (0.01-0.20); Immature Granulocytes % (auto) 0.3 %; Lymphocytes # (auto) 1.34 K/uL (1.20-3.40); Lymphocytes % (auto) 10.3 %; Mean Corpuscular Hemoglobin 29.5 pg (25.0-34.0); Mean Corpuscular Hgb Conc 33.6 g/dL (32.0-36.0); Mean Corpuscular Volume 87.6 fL (80.0-100.0); Mean Platelet Volume 11.1 fL (9.4-12.4); Monocytes # (auto) 1.03 K/uL (0.11-0.59); Monocytes % (auto) 7.9 %; Neutrophils # (auto) 10.57 K/uL (1.40-6.50); Neutrophils % (auto) 80.9 %; Platelet Count 218 K/uL (130-400); RDW Coefficient of Variation 12.2 % (11.5-14.5); RDW Standard Deviation 39.6 fL (36.4-46.3); White Blood Count 13.06 K/ul (4.8-10.8)
[2023-06-28 03:12] LABS: Albumin Globulin Ratio 1.5 (0.9-2); Albumin Level 4.6 gm/dl (3.4-5.0); BUN Creatinine Ratio 15.1 (10-20); Bilirubin,Total 0.5 mg/dl (0.2-1.0); Calcium 9.5 mg/dl (8.6-10.3); Creatinine Clr Calc Pharmacy 73.7 ml/min; Est GFR (African American) 71.9 ml/min; Est GFR (Non-African American) 62.1 ml/min; Globulin 3.1 gm/dl (2.5-4.0); Potassium 4.2 mmol/L (3.5-5.1); Total Protein 7.7 gm/dl (6.0-8.3)
[2023-06-28 03:26] LABS: Amphetamines+Metham, Urine Neg (Neg); Barbiturates, Urine Neg (Neg); Benzodiazepine, Urine Neg (Neg); Cocaine, Urine Neg (Neg); MDMA (Ecstacy), Urine Neg (Neg); Marijuana, Urine Neg (Neg); Methadone, Urine Neg (Neg); Opiate, Urine Neg (Neg); Phencyclidine, Urine Neg (Neg)
[2023-06-28 03:26] LABS: Thyroid Stimulating Hormone 2.835 uIu/ml (0.300-4.500)
[2023-06-28 03:43] LABS: Acetaminophen < 3 ug/ml (10-30); Salicylate < 3.0 mg/dl (3.0-30)
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
[2023-06-28] MEDS ORDERED: SODIUM CHLORIDE 0.65% NA SOLN 45 ML (OCEAN) PRN (06:27)
[2023-06-28] MEDS ORDERED: BISMUTH SUBSALICYLATE LIQD 236 ML PO PRN (06:27)
[2023-06-28] MEDS ORDERED: MAGNESIUM HYDROXIDE SUSP 30 ML UDC PO PRN (06:27)
[2023-06-28] MEDS ORDERED: hydrOXYzine HCl 25 MG TAB PO PRN ×2 (06:27)
[2023-06-28] MEDS ORDERED: ALUMINUM/MAGNESIUM SUSP 30 ML UDC PO PRN (06:27)
[2023-06-28] MEDS ORDERED: ACETAMINOPHEN 325 MG TAB PO PRN (06:27)
[2023-06-28] MEDS ORDERED: LORazepam 1 MG TAB PO PRN (06:28)
[2023-06-28] MEDS ORDERED: OLANZapine 5 MG TABLET PO PRN (11:58)
[2023-06-28] MEDS ORDERED: BENZTROPINE MESYLATE 1 MG TAB PO PRN (11:59)
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
[2023-06-28] MEDS: THIOTHIXENE 1 MG CAP PO SCH ×2 (15:25→21:40)
[2023-06-28] MEDS ORDERED: THIOTHIXENE 1 MG CAP PO SCH (21:00)
[2023-06-29] MEDS: THIOTHIXENE 1 MG CAP PO SCH ×2 (09:04→20:40)
--- NOTE | 2023-06-29 11:29 | Psychiatric Progress Note ---
Date of Service June 29, 2023 Impression / Recommendations Impression 43 yo male with hx of chronic paranoid delusions and hallucinations, able to remain outside of hospital when compliant with antipsychotic medications (Invega LEÓN), readmit 2nd time this year with med compliance issues and significant decompensation in self care. Discussed with family risks of TD with older agents like Navane. Discussed treatment goal to decrease relapse as number of episodes often results in failure to return to baseline. Overall, I spent a total of 40 minutes with this case, including review of chart, direct evaluation of the patient, counseling family, coordination with nursing, interdisciplinary team meeting, risk assessment, and documentation. (1) Schizophrenia: Plan 06/29/23: continue Navane trial as willing to take PO with hopes to convert to an agent for LEÓN when clearer/more engaged in treatment. Attempt fasting metablic labs and repeat WBC in am. 06/28/23: The patient was admitted to the [facility] ([facility]) on q15 min checks (behavioral with suicide precautions) for safety. The patient will participate in group, recreational, and milieu therapies and will be offered additional individual and family sessions as clinically appropriate. Will offer Zyprexa 5 mg po q4 hr prn. Currently stating he will only take a typical antipsychotic as standing order and is too thought blocked/paranoid to meaningfully discussed LEÓN. He specifically requests Navane. He was able to voice understanding of increased risks of TD with older agents and feels it will help him rest though unable to state when last took it. It's certainly preferrable to try over medications over objection and hopefully will improve to be able to discuss longer term med plan to improve compliance. Ordered Navane 2 mg BID starting this afternoon. Inventory Assets Strengths: supportive family, hx of positive response to medication Needs: improve reality orientation, med compliance Suicide Risk Level Suicide Risk Level: Low (q15 min observation checks) Risk Factors Assessment Male: Yes : Yes Do You Have Access To A Gun?: No Mental Health Diagnoses: Yes Previous Attempt: No Previous Psychiatric Hospitalization: Yes Protective Factors Assessment Employed: No Supportive Family: Yes Interval History Identifying Information MONSE GALINDO is a 43-year-old M who currently lives in [place] with parents, has a history of noncompliance with medications for schizophrenia, and was admitted on 06/28/23 05:58 on a 302 involuntary commitment for hallucinations and aggression. Chief Complaint "voices better but I want to rest" Review of Systems Sleep Information Total Hours of Sleep: 5 Meal Information Percent Meal Consumed - Breakfast: 100 Percent Meal Consumed - Lunch: 50 Percent Meal Consumed - Dinner: 100 Subjective Subjective Patient was seen & assessed and interval progress reviewed with treatment team. Patient comes out for meals but is otherwise reclusive to meals and refusing groups. He reported to staff that voices are decreasing slightly with starting Navane. spoke with parents with his permission/at their request--They report Invega is mailed to the home and although they received the November dose as per [facility], his last injection was likely August. He has since refused to take any PO medication and they worry about his ongoing decline. He spends all of his time in his room and on rare occasions when he does leave, he carries a back back full of his journals which are reportedly voluminous writings on various conspiracies that don't make much sense. Father reports he and rest of family are traumatized by his aggressive outburst and support ongoing stay. Discussed benefits of a 303 with plan for 304 outpatient commitment and they would support this and feel it is necessary for him to return to their home. Mother has tried to get him a CM but he refused on phone and mainly talked with county about an apartment which is totally unrealistic in their opinion. They report that he hasn't used medical MJ for at least 4 months and is no longer binge drinking alcohol (last use 6-8 weeks ago). Physical Exam Psychiatric Apperance: + disheveled Eye Contact: + poor eye contact Motor Behavior: no abnormal motor movements Speech: + abnormal rate/rhythm/volume of speech Affect: + blunted affect Mood: + irritable mood Thought Process: + thought blocking and + concrete thought process Thought Content: + paranoid and + delusions Suicidal Thoughts: denies suicidal thoughts Homicidal Thoughts: denies homicidal thoughts Hallucinations: + auditory hallucinations Cognition: language grossly intact; + attention not intact Insight: + poor insight Judgment: + poor judgement Vital Signs (Past 24 Hours) Last Vital Signs Temp 36.4 C L 06/29/23 06:35 Pulse 60 06/29/23 06:37 Resp 16 06/29/23 06:35 BP 120/83 06/29/23 06:37 Pulse Ox 95 06/28/23 02:27 O2 Del Method Room Air 06/28/23 02:27 Results & Data ([facility]) Current Inpatient Medications Current Inpatient Medications: Current Inpatient Medications Acetaminophen (Acetaminophen 325 Mg Tab) 650 mg PO Q4H PRN PRN Reason: Headache or Minor Fever Stop: 07/28/23 06:26 Al Hydrox/Mg Hydrox/Simethicone (Aluminum/Magnesium Susp 30 Ml Udc) 30 ml PO Q4H PRN PRN Reason: GI Upset Stop: 07/28/23 06:26 Benztropine Mesylate (Benztropine Mesylate 1 Mg Tab) 1 mg PO Q6 PRN PRN Reason: Muscle Spasm Stop: 07/28/23 11:58 Bismuth Subsalicylate (Bismuth Subsalicylate Liqd 236 Ml) 15 ml PO PRN PRN PRN Reason: Loose Stool Stop: 07/28/23 06:26 Lorazepam (Lorazepam 1 Mg Tab) 1 mg PO Q4 PRN PRN Reason: Agitation Stop: 07/28/23 06:27 Magnesium Hydroxide (Magnesium Hydroxide Susp 30 Ml Udc) 30 ml PO DAILY PRN PRN Reason: Constipation Stop: 07/28/23 06:26 Olanzapine (Olanzapine 5 Mg Tablet) 5 mg PO Q4 PRN PRN Reason: Anxiety/Agitation Stop: 07/28/23 11:59 Sodium Chloride (Sodium Chloride 0.65% Na Soln 45 Ml (Cherry)) 1 - 2 sprays NA PRN PRN PRN Reason: Nasal Dryness/Congestion Stop: 07/28/23 06:26 Thiothixene (Thiothixene 1 Mg Cap) 2 mg PO BID KAYODE Stop: 07/28/23 13:19 Last Admin: 06/29/23 09:04 Dose: 2 mg Mental Health & Subst Abuse Tx Psychiatrist Name of Psychiatrist: Ben Veronica Psychiatrist's Psychiatric Appointment Comment: [address], [place] [id number], [place] [id number] Therapist Name of Therapist: None Bulk Picker Name of Bulk Picker: None Post Discharge Appointments Primary Care Physician Name Of Family Doctor/PCP: ADAM Nolan Primary Care Provider Appointment Comment: [address] [place] [address] [place] [id number] Contact Information Discharge Discharge Address: [address] [place] [address] (1) Schizophrenia Schizophrenia type: unspecified Qualified Code(s): F20.9 - Schizophrenia, unspecified
[2023-06-30 08:25] LABS: Basophils # (auto) 0.03 K/uL (0.00-0.20); Basophils % (auto) 0.4 %; Eosinophils # (auto) 0.11 K/uL (0.00-0.50); Eosinophils % (auto) 1.4 %; Immature Granulocytes # (auto) 0.02 K/uL (0.01-0.20); Immature Granulocytes % (auto) 0.3 %; Lymphocytes # (auto) 2.05 K/uL (1.20-3.40); Lymphocytes % (auto) 26.9 %; Monocytes # (auto) 0.65 K/uL (0.11-0.59); Monocytes % (auto) 8.5 %; Neutrophils # (auto) 4.75 K/uL (1.40-6.50); Neutrophils % (auto) 62.5 %; White Blood Count 7.61 K/ul (4.8-10.8)
[2023-06-30] MEDS: THIOTHIXENE 1 MG CAP PO SCH ×2 (08:40→20:34)
[2023-06-30 08:42] LABS: Chol HDL Ratio 4.5 (0-5)
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
[2023-07-01] MEDS: THIOTHIXENE 1 MG CAP PO SCH (08:45)
--- NOTE | 2023-07-01 12:33 | Psychiatric Progress Note ---
Date of Service July 01, 2023 Impression / Recommendations Impression 43 yo male with hx of chronic paranoid delusions and hallucinations, able to remain outside of hospital when compliant with antipsychotic medications (Invega LEÓN), readmit 2nd time this year with med compliance issues and significant decompensation in self care. MNPR secondary to severity of psychosis, recent aggression Overall, I spent a total of 40 minutes with this case, including review of chart, direct evaluation of the patient, coordination with nursing, interdisciplinary treatment team, 303 hearing, and documentation. (1) Schizophrenia: Plan 07/01/23: 303 granted. will offer increase in Navane to 5 mg this hs with plan for BID. Again, as improves/able will transition to an agent that can be given LEÓN. Invega reportedly caused some GI side effects and unclear that Abilify would cover, ?Haldol dec. If patient should begin to refuse PO antipsychotics during stay, I do feel he would meet criteria for medication over objection as severe negative symptoms with poor self care and aggression toward others prior to admission due to his psychosis. It is my medical opinion that his is at risk of or serious disability within the next 30 days due to his decompensated psychosis without antipsychotic medication. 06/30/23: at this point patient has only voiced willingness to take PO Navane and remains thought blocked so unable to assess tolerability vs. efficacy. Fasting labs reviewed. 303 hearing in am. 06/29/23: continue Navane trial as willing to take PO with hopes to convert to an agent for LEÓN when clearer/more engaged in treatment. Attempt fasting metablic labs and repeat WBC in am. 06/28/23: The patient was admitted to the [facility] on q15 min checks (behavioral with suicide precautions) for safety. The patient will participate in group, recreational, and milieu therapies and will be offered additional individual and family sessions as clinically appropriate. Will offer Zyprexa 5 mg po q4 hr prn. Currently stating he will only take a typical antipsychotic as standing order and is too thought blocked/paranoid to meaningfully discussed LEÓN. He specifically requests Navane. He was able to voice understanding of increased risks of TD with older agents and feels it will help him rest though unable to state when last took it. It's certainly preferrable to try over medications over objection and hopefully will improve to be able to discuss longer term med plan to improve compliance. Ordered Navane 2 mg BID starting this afternoon. Inventory Assets Strengths: supportive family, hx of positive response to medication Needs: improve reality orientation, med compliance Suicide Risk Level Suicide Risk Level: Low (q15 min observation checks) Risk Factors Assessment Male: Yes : Yes Do You Have Access To A Gun?: No Mental Health Diagnoses: Yes Previous Attempt: No Previous Psychiatric Hospitalization: Yes Protective Factors Assessment Employed: No Supportive Family: Yes Interval History Identifying Information MONSE GALINDO is a 43-year-old M who currently lives in [place] with parents, has a history of noncompliance with medications for schizophrenia, and was admitted on 06/28/23 05:58 on a 302 involuntary commitment for hallucinations and aggression. Chief Complaint declined to participate in 303 hearing Review of Systems Sleep Information Total Hours of Sleep: 8 Meal Information Percent Meal Consumed - Breakfast: 100 Percent Meal Consumed - Lunch: 100 Percent Meal Consumed - Dinner: 100 Subjective Subjective Patient was seen & assessed and interval progress reviewed with treatment team. Patient accepting doses of Navane. Initiated showering mid am. He seems somewhat paranoid to interact with me as wearing mask due to respiratory illness. Physical Exam Psychiatric Apperance: appropriately groomed Eye Contact: + poor eye contact Motor Behavior: no abnormal motor movements Speech: + abnormal rate/rhythm/volume of speech non sponatneous Affect: + blunted affect Mood: no irritable mood Thought Process: + thought blocking and + concrete thought process Thought Content: + paranoid and + delusions Suicidal Thoughts: denies suicidal thoughts Homicidal Thoughts: denies homicidal thoughts Hallucinations: + auditory hallucinations (unclear frequency) Cognition: language grossly intact; + attention not intact Insight: + poor insight Judgment: + poor judgement Vital Signs (Past 24 Hours) Last Vital Signs Temp 35.9 C L 06/30/23 06:00 Pulse 60 06/30/23 06:32 Resp 16 06/30/23 06:00 BP 107/73 06/30/23 06:32 Pulse Ox 95 06/28/23 02:27 O2 Del Method Room Air 06/28/23 02:27 Results & Data ([facility]) Current Inpatient Medications Current Inpatient Medications: Current Inpatient Medications Acetaminophen (Acetaminophen 325 Mg Tab) 650 mg PO Q4H PRN PRN Reason: Headache or Minor Fever Stop: 07/28/23 06:26 Al Hydrox/Mg Hydrox/Simethicone (Aluminum/Magnesium Susp 30 Ml Udc) 30 ml PO Q4H PRN PRN Reason: GI Upset Stop: 07/28/23 06:26 Benztropine Mesylate (Benztropine Mesylate 1 Mg Tab) 1 mg PO Q6 PRN PRN Reason: Muscle Spasm Stop: 07/28/23 11:58 Bismuth Subsalicylate (Bismuth Subsalicylate Liqd 236 Ml) 15 ml PO PRN PRN PRN Reason: Loose Stool Stop: 07/28/23 06:26 Lorazepam (Lorazepam 1 Mg Tab) 1 mg PO Q4 PRN PRN Reason: Agitation Stop: 07/28/23 06:27 Magnesium Hydroxide (Magnesium Hydroxide Susp 30 Ml Udc) 30 ml PO DAILY PRN PRN Reason: Constipation Stop: 07/28/23 06:26 Olanzapine (Olanzapine 5 Mg Tablet) 5 mg PO Q4 PRN PRN Reason: Anxiety/Agitation Stop: 07/28/23 11:59 Sodium Chloride (Sodium Chloride 0.65% Na Soln 45 Ml (Lynn)) 1 - 2 sprays NA PRN PRN PRN Reason: Nasal Dryness/Congestion Stop: 07/28/23 06:26 Thiothixene (Thiothixene 1 Mg Cap) 2 mg PO BID KAYODE Stop: 07/28/23 13:19 Last Admin: 07/01/23 08:45 Dose: 2 mg Mental Health & Subst Abuse Tx Psychiatrist Name of Psychiatrist: Ben Veronica Psychiatrist's Psychiatric Appointment Comment: [facility] [address] [place], [address], [place] [address] Therapist Name of Therapist: None Conference And Event Organiser Name of Conference And Event Organiser: None Post Discharge Appointments Primary Care Physician Name Of Family Doctor/PCP: ADAM Nolan Primary Care Provider Appointment Comment: [address] [place] [address] [place] [id number] Contact Information Discharge Discharge Address: [address] [facility] [place] [address] [address] (1) Schizophrenia Schizophrenia type: unspecified Qualified Code(s): F20.9 - Schizophrenia, unspecified
[2023-07-01 18:19] LABS: Influenza A virus by PCR Negative (Neg); Influenza B virus by PCR Negative (Neg); RSV by PCR Negative (Neg); SARS CoV2 RNA(COVID-19) Ceph NEGATIVE (Negative)
[2023-07-01] MEDS: THIOTHIXENE 5 MG CAP PO SCH (20:19)
[2023-07-01] MEDS ORDERED: THIOTHIXENE 5 MG CAP PO SCH (21:00)
[2023-07-02] MEDS: THIOTHIXENE 5 MG CAP PO SCH ×2 (08:12→20:38)
--- NOTE | 2023-07-02 10:35 | Psychiatric Progress Note ---
Date of Service July 02, 2023 Impression / Recommendations Impression 43 yo male with hx of chronic paranoid delusions and hallucinations, able to remain outside of hospital when compliant with antipsychotic medications (Invega LEÓN), readmit 2nd time this year with med compliance issues and significant decompensation in self care. MNPR secondary to severity of psychosis, recent aggression 07/02/2023: Monosyllabic, uncooperative. Has not been participating in groups or the milieu. Limited benefit seen thus far from thiothixene, which has been the only antipsychotic he's been willing to consider, at the current dose of 5 mg BID. Maintenance doses are typically 20-30 mg/day with a recommended maximum of 60 mg/day so there's considerable room for adjustment. By history, pt appears to require an LEÓN antipsychotic to function outside the hospital setting; although thiothixene is a thioxanthene, the phenothiazine fluphenazine may be the most similar LEÓN available. If an effective dose of thiothixene can be established, a potentially-equivalent fluphenazine decanoate dose could be estimated based on thiothixene's being about half as potent as oral fluphenazine and the equivalence of fluphenazine decanoate given every 3 weeks at 1.25 x the oral dose (so, e.g., thiothixene 20 mg/day would be about equivalent to fluphenazine decanoate 12.5 mg Q3Wk). (1) Schizophrenia: Plan 07/02/2023: * increase thiothixene to 10 mg BID (so today would receive total of 15 mg) - increased 06/30/2023, started 06/28/2023 at 2 mg BID * Dr. Schultz has documented (on 07/01/2023) her opinion that pt would meet criteria for medication over objection if he were to refuse antipsychotic medication 07/01/23: 303 granted. will offer increase in Navane to 5 mg this hs with plan for BID. Again, as improves/able will transition to an agent that can be given LEÓN. Invega reportedly caused some GI side effects and unclear that Abilify would cover, ?Haldol dec. If patient should begin to refuse PO antipsychotics during stay, I do feel he would meet criteria for medication over objection as severe negative symptoms with poor self care and aggression toward others prior to admission due to his psychosis. It is my medical opinion that his is at risk of or serious disability within the next 30 days due to his decompensated psychosis without antipsychotic medication. 06/30/23: at this point patient has only voiced willingness to take PO Navane and remains thought blocked so unable to assess tolerability vs. efficacy. Fasting labs reviewed. 303 hearing in am. 06/29/23: continue Navane trial as willing to take PO with hopes to convert to an agent for LEÓN when clearer/more engaged in treatment. Attempt fasting metablic labs and repeat WBC in am. 06/28/23: The patient was admitted to the [facility]) on q15 min checks (behavioral with suicide precautions) for safety. The patient will participate in group, recreational, and milieu therapies and will be offered additional individual and family sessions as clinically appropriate. Will offer Zyprexa 5 mg po q4 hr prn. Currently stating he will only take a typical antipsychotic as standing order and is too thought blocked/paranoid to meaningfully discussed LEÓN. He specifically requests Navane. He was able to voice understanding of increased risks of TD with older agents and feels it will help him rest though unable to state when last took it. It's certainly preferrable to try over medications over objection and hopefully will improve to be able to discuss longer term med plan to improve compliance. Ordered Navane 2 mg BID starting this afternoon. Inventory Assets Strengths: supportive family, hx of positive response to medication Needs: improve reality orientation, med compliance Suicide Risk Level Suicide Risk Level: Low (q15 min observation checks) Risk Factors Assessment Male: Yes : Yes Do You Have Access To A Gun?: No Mental Health Diagnoses: Yes Previous Attempt: No Previous Psychiatric Hospitalization: Yes Protective Factors Assessment Employed: No Supportive Family: Yes Interval History Identifying Information MONSE GALINDO is a 43-year-old M who currently lives in [place] with parents, has a history of noncompliance with medications for schizophrenia, and was admitted on 06/28/23 05:58 on a 302 involuntary commitment for hallucinations and aggression. Chief Complaint "OK". Review of Systems Sleep Information Total Hours of Sleep: 2.75 Meal Information Percent Meal Consumed - Breakfast: 100 Percent Meal Consumed - Lunch: 100 Percent Meal Consumed - Dinner: 100 Subjective Subjective The patient was seen and assessed and interval progress reviewed in a multidisciplinary team meeting with the treatment team. For details, see the "Impression" section. Overall I spent a total of 28 minutes for this inpatient follow-up including review of chart records, review of test results, direct evaluation of the patient [id number], reconciling and ordering medication, medication education with the patient, risk assessment, discussion during interdisciplinary treatment rounds, and documentation in the electronic health record. Physical Exam Psychiatric Orientation: alert, oriented to person, oriented to place, oriented to time and + guarded Apperance: + disheveled Eye Contact: + poor eye contact (avoids eye contact) Motor Behavior: no abnormal motor movements Speech: + abnormal rate/rhythm/volume of speech (monosyllabic) Affect: + blunted affect Mood: no irritable mood Thought Process: + thought blocking and + concrete thought process Thought Content: + paranoid and + delusions Suicidal Thoughts: denies suicidal thoughts Homicidal Thoughts: denies homicidal thoughts Hallucinations: + auditory hallucinations (unclear frequency) Cognition: language grossly intact; + attention not intact Estimated Intelligence: average estimated intelligence Insight: + poor insight Judgment: + poor judgement Vital Signs (Past 24 Hours) Last Vital Signs Temp 35.9 C L 06/30/23 06:00 Pulse 60 06/30/23 06:32 Resp 16 06/30/23 06:00 BP 107/73 06/30/23 06:32 Pulse Ox 95 06/28/23 02:27 O2 Del Method Room Air 06/28/23 02:27 Results & Data ([facility]) Laboratory Results Laboratory Results - last 24 hr 07/01/23 17:00 SARS-CoV-2 (PCR) NEGATIVE Influenza Type A (PCR) Negative Influenza Type B (PCR) Negative RSV (RT-PCR) Negative Current Inpatient Medications Current Inpatient Medications: Current Inpatient Medications Acetaminophen (Acetaminophen 325 Mg Tab) 650 mg PO Q4H PRN PRN Reason: Headache or Minor Fever Stop: 07/28/23 06:26 Al Hydrox/Mg Hydrox/Simethicone (Aluminum/Magnesium Susp 30 Ml Udc) 30 ml PO Q4H PRN PRN Reason: GI Upset Stop: 07/28/23 06:26 Benztropine Mesylate (Benztropine Mesylate 1 Mg Tab) 1 mg PO Q6 PRN PRN Reason: Muscle Spasm Stop: 07/28/23 11:58 Bismuth Subsalicylate (Bismuth Subsalicylate Liqd 236 Ml) 15 ml PO PRN PRN PRN Reason: Loose Stool Stop: 07/28/23 06:26 Lorazepam (Lorazepam 1 Mg Tab) 1 mg PO Q4 PRN PRN Reason: Agitation Stop: 07/28/23 06:27 Magnesium Hydroxide (Magnesium Hydroxide Susp 30 Ml Udc) 30 ml PO DAILY PRN PRN Reason: Constipation Stop: 07/28/23 06:26 Olanzapine (Olanzapine 5 Mg Tablet) 5 mg PO Q4 PRN PRN Reason: Anxiety/Agitation Stop: 07/28/23 11:59 Sodium Chloride (Sodium Chloride 0.65% Na Soln 45 Ml (Mayes)) 1 - 2 sprays NA PRN PRN PRN Reason: Nasal Dryness/Congestion Stop: 07/28/23 06:26 Thiothixene (Thiothixene 5 Mg Cap) 5 mg PO BID KAYODE Stop: 07/31/23 20:59 Last Admin: 07/02/23 08:12 Dose: 5 mg Mental Health & Subst Abuse Tx Psychiatrist Name of Psychiatrist: Ben Veronica Psychiatrist's Psychiatric Appointment Comment: [address] [place] [address], [address] [place] [address] Therapist Name of Therapist: None Cashier Supervisor Name of Cashier Supervisor: None Post Discharge Appointments Primary Care Physician Name Of Family Doctor/PCP: ADAM Nolan Primary Care Provider Appointment Comment: [address] [place] [address] [place] [address] Contact Information Discharge Discharge Address: [address] [place] [address] [place] [address] (1) Schizophrenia Schizophrenia type: unspecified Qualified Code(s): F20.9 - Schizophrenia, unspecified
[2023-07-03] MEDS: THIOTHIXENE 5 MG CAP PO SCH ×2 (08:50→20:23)
--- NOTE | 2023-07-03 11:10 | Psychiatric Progress Note ---
Date of Service July 03, 2023 Impression / Recommendations Impression 43 yo male with hx of chronic paranoid delusions and hallucinations, able to remain outside of hospital when compliant with antipsychotic medications (Invega LEÓN), readmit 2nd time this year with med compliance issues and significant decompensation in self care. MNPR secondary to severity of psychosis, recent aggression 07/03/2023: Remains taciturn and seclusive, but has showered and has come out of his room for meals. Communication with me has remained limited to a very few words. Has tolerated increased thiothixene, now at 10 mg BID, for a total of 2 doses (last evening's and this morning's). He verbalizes his belief that the right dose for him is "2 or 4 milligrams" but has been willing to accept the ordered dose. Remains sufficiently guarded about symptoms such as hallucinations that I've been unable to determine if there's been any change or, indeed, if he's experiencing any at all. He certainly appears to be responding to internal auditory stimuli, but has not acknowledged this to me. 07/02/2023: Monosyllabic, uncooperative. Has not been participating in groups or the milieu. Limited benefit seen thus far from thiothixene, which has been the only antipsychotic he's been willing to consider, at the current dose of 5 mg BID. Maintenance doses are typically 20-30 mg/day with a recommended maximum of 60 mg/day so there's considerable room for adjustment. By history, pt appears to require an LEÓN antipsychotic to function outside the hospital setting; although thiothixene is a thioxanthene, the phenothiazine fluphenazine may be the most similar LEÓN available. If an effective dose of thiothixene can be established, a potentially-equivalent fluphenazine decanoate dose could be estimated based on thiothixene's being about half as potent as oral fluphenazine and the equivalence of fluphenazine decanoate given every 3 weeks at 1.25 x the oral dose (so, e.g., thiothixene 20 mg/day would be about equivalent to fluphenazine decanoate 12.5 mg Q3Wk). (1) Schizophrenia: Plan 07/03/2023: * continue thiothixene 10 mg BID - increased 06/30/2023, started 06/28/2023 at 2 mg BID * Dr. Schultz has documented (on 07/01/2023) her opinion that pt would meet criteria for medication over objection if he were to refuse antipsychotic medication 07/02/2023: * increase thiothixene to 10 mg BID (so today would receive total of 15 mg) - increased 06/30/2023, started 06/28/2023 at 2 mg BID * Dr. Schultz has documented (on 07/01/2023) her opinion that pt would meet criteria for medication over objection if he were to refuse antipsychotic medication 07/01/23: 303 granted. will offer increase in Navane to 5 mg this hs with plan for BID. Again, as improves/able will transition to an agent that can be given LEÓN. Invega reportedly caused some GI side effects and unclear that Abilify would cover, ?Haldol dec. If patient should begin to refuse PO antipsychotics during stay, I do feel he would meet criteria for medication over objection as severe negative symptoms with poor self care and aggression toward others prior to admission due to his psychosis. It is my medical opinion that his is at risk of or serious disability within the next 30 days due to his decompensated psychosis without antipsychotic medication. 06/30/23: at this point patient has only voiced willingness to take PO Navane and remains thought blocked so unable to assess tolerability vs. efficacy. Fasting labs reviewed. 303 hearing in am. 06/29/23: continue Navane trial as willing to take PO with hopes to convert to an agent for LEÓN when clearer/more engaged in treatment. Attempt fasting metablic labs and repeat WBC in am. 06/28/23: The patient was admitted to the [facility] ([facility] unit) on q15 min checks (behavioral with suicide precautions) for safety. The patient will participate in group, recreational, and milieu therapies and will be offered additional individual and family sessions as clinically appropriate. Will offer Zyprexa 5 mg po q4 hr prn. Currently stating he will only take a typical antipsychotic as standing order and is too thought blocked/paranoid to meaningfully discussed LEÓN. He specifically requests Navane. He was able to voice understanding of increased risks of TD with older agents and feels it will help him rest though unable to state when last took it. It's certainly preferrable to try over medications over objection and hopefully will improve to be able to discuss longer term med plan to improve compliance. Ordered Navane 2 mg BID starting this afternoon. Inventory Assets Strengths: supportive family, hx of positive response to medication Needs: improve reality orientation, med compliance Suicide Risk Level Suicide Risk Level: Low (q15 min observation checks) Risk Factors Assessment Male: Yes : Yes Do You Have Access To A Gun?: No Mental Health Diagnoses: Yes Previous Attempt: No Previous Psychiatric Hospitalization: Yes Protective Factors Assessment Employed: No Supportive Family: Yes Interval History Identifying Information MONSE GALINDO is a 43-year-old M who currently lives in [place] with parents, has a history of noncompliance with medications for schizophrenia, and was admitted on 06/28/23 05:58 on a 302 involuntary commitment for hallucinations and aggression. Chief Complaint "OK". Review of Systems Sleep Information Total Hours of Sleep: 7 Meal Information Percent Meal Consumed - Breakfast: 100 Percent Meal Consumed - Lunch: 100 Percent Meal Consumed - Dinner: 100 Subjective Subjective The patient was seen and assessed and interval progress reviewed in a multidisciplinary team meeting with the treatment team. For details, see the "Impression" section. Overall I spent a total of 28 minutes for this inpatient follow-up including review of chart records, direct evaluation of the patient [id number], reconciling and ordering medication, medication education with the patient, risk assessment, discussion during interdisciplinary treatment rounds, and documentation in the electronic health record. Physical Exam Psychiatric Orientation: alert, oriented to person, oriented to place, oriented to time and + guarded Apperance: appropriately groomed Eye Contact: + poor eye contact (avoids eye contact) Motor Behavior: no abnormal motor movements Speech: + abnormal rate/rhythm/volume of speech (monosyllabic) Affect: + blunted affect Mood: no irritable mood Thought Process: + thought blocking and + concrete thought process Thought Content: + paranoid and + delusions Suicidal Thoughts: denies suicidal thoughts Homicidal Thoughts: denies homicidal thoughts Hallucinations: + auditory hallucinations (unclear frequency) Cognition: language grossly intact; + attention not intact Estimated Intelligence: average estimated intelligence Insight: + poor insight Judgment: + poor judgement Vital Signs (Past 24 Hours) Last Vital Signs Temp 36.6 C 07/03/23 06:37 Pulse 67 07/03/23 06:38 Resp 16 07/03/23 06:37 BP 121/84 07/03/23 06:38 Pulse Ox 95 06/28/23 02:27 O2 Del Method Room Air 06/28/23 02:27 Results & Data ([facility]) Current Inpatient Medications Current Inpatient Medications: Current Inpatient Medications Acetaminophen (Acetaminophen 325 Mg Tab) 650 mg PO Q4H PRN PRN Reason: Headache or Minor Fever Stop: 07/28/23 06:26 Al Hydrox/Mg Hydrox/Simethicone (Aluminum/Magnesium Susp 30 Ml Udc) 30 ml PO Q4H PRN PRN Reason: GI Upset Stop: 07/28/23 06:26 Benztropine Mesylate (Benztropine Mesylate 1 Mg Tab) 1 mg PO Q6 PRN PRN Reason: Muscle Spasm Stop: 07/28/23 11:58 Bismuth Subsalicylate (Bismuth Subsalicylate Liqd 236 Ml) 15 ml PO PRN PRN PRN Reason: Loose Stool Stop: 07/28/23 06:26 Lorazepam (Lorazepam 1 Mg Tab) 1 mg PO Q4 PRN PRN Reason: Agitation Stop: 07/28/23 06:27 Magnesium Hydroxide (Magnesium Hydroxide Susp 30 Ml Udc) 30 ml PO DAILY PRN PRN Reason: Constipation Stop: 07/28/23 06:26 Olanzapine (Olanzapine 5 Mg Tablet) 5 mg PO Q4 PRN PRN Reason: Anxiety/Agitation Stop: 07/28/23 11:59 Sodium Chloride (Sodium Chloride 0.65% Na Soln 45 Ml ([place])) 1 - 2 sprays NA PRN PRN PRN Reason: Nasal Dryness/Congestion Stop: 07/28/23 06:26 Thiothixene (Thiothixene 5 Mg Cap) 10 mg PO BID KAYODE Stop: 08/01/23 20:59 Last Admin: 07/03/23 08:50 Dose: 10 mg Mental Health & Subst Abuse Tx Psychiatrist Name of Psychiatrist: Ben Veronica Psychiatrist's Psychiatric Appointment Comment: [facility] [address], [address], [place] [address] Therapist Name of Therapist: None Senior Art Director Name of Senior Art Director: None Post Discharge Appointments Primary Care Physician Name Of Family Doctor/PCP: ADAM Nolan Primary Care Provider Appointment Comment: [address], [place] [address] Contact Information Discharge Discharge [address]: [address] [place] [address] [address]hele [address], [place] [id number] (1) Schizophrenia Schizophrenia type: unspecified Qualified Code(s): F20.9 - Schizophrenia, unspecified
[2023-07-04] MEDS: THIOTHIXENE 5 MG CAP PO SCH ×2 (08:25→20:23)
--- NOTE | 2023-07-04 11:26 | Psychiatric Progress Note ---
Date of Service July 04, 2023 Impression / Recommendations Impression 43 yo male with hx of chronic paranoid delusions and hallucinations, able to remain outside of hospital when compliant with antipsychotic medications (Deniseega LEÓN), readmit 2nd time this year with med compliance issues and significant decompensation in self care. MNPR secondary to severity of psychosis, recent aggression 07/04/2023: Very terse and somewhat irritable, but a bit more talkative today. He remains seclusive in his room except for meals. Has now revealed to staff that he hears a number of voices, essentially constantly, arguing among themselves and criticizing him. He does not respond when I ask him about this. He does volunteer that he is "doing a lot of spiritual battles all the time" and that he is "very important in that realm". He feels irritated that this importance isn't recognized by others. He also feels as if "they are going out of their way to disrespect" him, giving as a specific example not being given much of a mean at lunch yesterday - unfortunately, the menu he'd been given had no main selections for him to choose, only salad and roll which he circled and were sent. The nurse did offer to get him more food right away but pt muttered darkly that he anticipated that this would somehow be thwarted (which it wasn't). He says he slept well last night, felt rested this morning, and has not noted any side effects attributable to the medication. Given that he does not zhang bjectively endorse that he has any symptoms at all, it's difficult to ascertain whether he's had any subjective improvement. 07/03/2023: Remains taciturn and seclusive, but has showered and has come out of his room for meals. Communication with me has remained limited to a very few words. Has tolerated increased thiothixene, now at 10 mg BID, for a total of 2 doses (last evening's and this morning's). He verbalizes his belief that the right dose for him is "2 or 4 milligrams" but has been willing to accept the ordered dose. Remains sufficiently guarded about symptoms such as hallucinations that I've been unable to determine if there's been any change or, indeed, if he's experiencing any at all. He certainly appears to be responding to internal auditory stimuli, but has not acknowledged this to me. 07/02/2023: Monosyllabic, uncooperative. Has not been participating in groups or the milieu. Limited benefit seen thus far from thiothixene, which has been the only antipsychotic he's been willing to consider, at the current dose of 5 mg BID. Maintenance doses are typically 20-30 mg/day with a recommended maximum of 60 mg/day so there's considerable room for adjustment. By history, pt appears to require an LEÓN antipsychotic to function outside the hospital setting; although thiothixene is a thioxanthene, the phenothiazine fluphenazine may be the most similar LEÓN available. If an effective dose of thiothixene can be established, a potentially-equivalent fluphenazine decanoate dose could be estimated based on thiothixene's being about half as potent as oral fluphenazine and the eq uivalence of fluphenazine decanoate given every 3 weeks at 1.25 x the oral dose (so, e.g., thiothixene 20 mg/day would be about equivalent to fluphenazine decanoate 12.5 mg Q3Wk). (1) Schizophrenia: Plan 07/04/2023: * continue thiothixene 10 mg BID - increased 06/30/2023, started 06/28/2023 at 2 mg BID * Dr. Schultz has documented (on 07/01/2023) her opinion that pt would meet criteria for medication over objection if he were to refuse antipsychotic medication 07/03/2023: * continue thiothixene 10 mg BID - increased 06/30/2023, started 06/28/2023 at 2 mg BID * Dr. Schultz has documented (on 07/01/2023) her opinion that pt would meet criteria for medication over objection if he were to refuse antipsychotic medication 07/02/2023: * increase thiothixene to 10 mg BID (so today would receive total of 15 mg) - increased 06/30/2023, started 06/28/2023 at 2 mg BID * Dr. Schultz has documented (on 07/01/2023) her opinion that pt would meet criteria for medication over objection if he were to refuse antipsychotic medication 07/01/23: 303 granted. will offer increase in Navane to 5 mg this hs with plan for BID. Again, as improves/able will transition to an agent that can be given LEÓN. Invega reportedly caused some GI side effects and unclear that Abilify would cover, ?Haldol dec. If patient should begin to refuse PO antipsychotics during stay, I do feel he would meet criteria for medication over objection as severe negative symptoms with poor self care and aggression toward others prior to admission due to his psychosis. It is my medical opinion that his is at risk of or serious disability within the next 30 days due to his decompensated psychosis without antipsychotic medication. 06/30/23: at this point patient has only voiced willingness to take PO Navane and remains thought blocked so unable to assess tolerability vs. efficacy. Fasting labs reviewed. 303 hearing in am. 06/29/23: continue Navane trial as willing to take PO with hopes to convert to an agent for LEÓN when clearer/more engaged in treatment. Attempt fasting metablic labs and repeat WBC in am. 06/28/23: The patient was admitted to the [facility] ([facility] on q15 min checks (behavioral with suicide precautions) for safety. The patient will participate in group, recreational, and milieu therapies and will be offered additional individual and family sessions as clinically appropriate. Will offer Zyprexa 5 mg po q4 hr prn. Currently stating he will only take a typical antipsychotic as standing order and is too thought blocked/paranoid to meaningfully discussed LEÓN. He specifically requests Navane. He was able to voice understanding of increased risks of TD with older agents and feels it will help him rest though unable to state when last took it. It's certainly preferrable to try over medications over objection and hopefully will improve to be able to discuss longer term med plan to improve compliance. Ordered Navane 2 mg BID starting this afternoon. Inventory Assets Strengths: supportive family, hx of positive response to medication Needs: improve reality orientation, med compliance Suicide Risk Level Suicide Risk Level: Low (q15 min observation checks) Risk Factors Assessment Male: Yes : Yes Do You Have Access To A Gun?: No Mental Health Diagnoses: Yes Previous Attempt: No Previous Psychiatric Hospitalization: Yes Protective Factors Assessment Employed: No Supportive Family: Yes Interval History Identifying Information MONSE GALINDO is a 43-year-old M who currently lives in [place] with parents, has a history of noncompliance with medications for schizophrenia, and was admitted on 06/28/23 05:58 on a 302 involuntary commitment for hallucinations and aggression. Chief Complaint "Not great. I'm important in the realm of spiritual battles". Review of Systems Sleep Information Total Hours of Sleep: 7 Meal Information Percent Meal Consumed - Breakfast: 100 Percent Meal Consumed - Lunch: 100 Percent Meal Consumed - Dinner: 90 Subjective Subjective The patient was seen and assessed and interval progress reviewed in a multidisciplinary team meeting with the treatment team. For details, see the "Impression" section. Overall I spent a total of 29 minutes for this inpatient follow-up including review of chart records, direct evaluation of the patient [id number], counseling the patient, medication education with the patient, risk assessment, discussion during interdisciplinary treatment rounds, and documentation in the electronic health record. Physical Exam Psychiatric Orientation: alert, oriented to person, oriented to place, oriented to time and + guarded Apperance: appropriately groomed Eye Contact: + poor eye contact (avoids eye contact) Motor Behavior: no abnormal motor movements Speech: + abnormal rate/rhythm/volume of speech (monosyllabic) Affect: + blunted affect Mood: no irritable mood Thought Process: + thought blocking and + concrete thought process Thought Content: + paranoid and + delusions Suicidal Thoughts: denies suicidal thoughts Homicidal Thoughts: denies homicidal thoughts Hallucinations: + auditory hallucinations (unclear frequency) Cognition: language grossly intact; + attention not intact Estimated Intelligence: average estimated intelligence Insight: + poor insight Judgment: + poor judgement Vital Signs (Past 24 Hours) Last Vital Signs Temp 36.5 C 07/04/23 06:31 Pulse 52 L 07/04/23 06:32 Resp 16 07/04/23 06:31 BP 107/73 07/04/23 06:32 Pulse Ox 95 06/28/23 02:27 O2 Del Method Room Air 06/28/23 02:27 Results & Data ([facility]) Current Inpatient Medications Current Inpatient Medications: Current Inpatient Medications Acetaminophen (Acetaminophen 325 Mg Tab) 650 mg PO Q4H PRN PRN Reason: Headache or Minor Fever Stop: 07/28/23 06:26 Al Hydrox/Mg Hydrox/Simethicone (Aluminum/Magnesium Susp 30 Ml Udc) 30 ml PO Q4H PRN PRN Reason: GI Upset Stop: 07/28/23 06:26 Benztropine Mesylate (Benztropine Mesylate 1 Mg Tab) 1 mg PO Q6 PRN PRN Reason: Muscle Spasm Stop: 07/28/23 11:58 Bismuth Subsalicylate (Bismuth Subsalicylate Liqd 236 Ml) 15 ml PO PRN PRN PRN Reason: Loose Stool Stop: 07/28/23 06:26 Lorazepam (Lorazepam 1 Mg Tab) 1 mg PO Q4 PRN PRN Reason: Agitation Stop: 07/28/23 06:27 Magnesium Hydroxide (Magnesium Hydroxide Susp 30 Ml Udc) 30 ml PO DAILY PRN PRN Reason: Constipation Stop: 07/28/23 06:26 Olanzapine (Olanzapine 5 Mg Tablet) 5 mg PO Q4 PRN PRN Reason: Anxiety/Agitation Stop: 07/28/23 11:59 Sodium Chloride (Sodium Chloride 0.65% Na Soln 45 Ml ([place])) 1 - 2 sprays NA PRN PRN PRN Reason: Nasal Dryness/Congestion Stop: 07/28/23 06:26 Thiothixene (Thiothixene 5 Mg Cap) 10 mg PO BID KAYODE Stop: 08/01/23 20:59 Last Admin: 07/04/23 08:25 Dose: 10 mg Mental Health & Subst Abuse Tx Psychiatrist Name of Psychiatrist: Ben Veronica [id number] [address] [place] [address] Therapist Name of Therapist: None Telecom Field Technician Name of Telecom Field Technician: None Post Discharge Appointments Primary Care Physician Name Of Family Doctor/PCP: ADAM Nolan Primary Care Provider Appointment Comment: [address] [place] [address] [place] [id number] Contact Information Discharge Discharge Address: [facility] [address] [place] [address] (1) Schizophrenia Schizophrenia type: unspecified Qualified Code(s): F20.9 - Schizophrenia, unspecified
[2023-07-05] MEDS: THIOTHIXENE 5 MG CAP PO SCH ×2 (08:49→20:48)
--- NOTE | 2023-07-05 09:59 | Psychiatric Progress Note ---
Date of Service July 05, 2023 Impression / Recommendations Impression 43 yo male with hx of chronic paranoid delusions and hallucinations, able to remain outside of hospital when compliant with antipsychotic medications (Invega LEÓN), readmit 2nd time this year with med compliance issues and significant decompensation in self care. MNPR secondary to severity of psychosis, recent aggression 07/05/2023: Says he feels "better", though he's unable to articulate in what way. He denies any adverse effects of medications except "it's messed up my blood pressure". He's unable to explain that any further. Review of vital signs shows little variation in his blood pressure, which has remained within the normal range. He has had some slow heart rates (52-89 BPM) but that has been the case prior to this admission and use of thiothixene. Has spoken more about auditory hallucinations, primarily of a man and a woman, though he has yet to acknowledge this with me. Continues to speak of being engaged in spiritual warfare and of being needed elsewhere in order to engage in this vital task. Complains of "feeling confined". Staff have repeatedly suggested that secluding himself in his room is likely to contribute to this and that getting out into the much larger, more open environment of the unit as a whole would likely help ameliorate the feeling. He has not been amenable to such suggestions. As thiothixene dose has been titrated, pt has been increasingly communicative and is now speaking in complete sentences, albeit still exhibiting uninflected speech. He has more range of affect. He remains guarded and suspicious. 07/04/2023: Very terse and somewhat irritable, but a bit more talkative today. He remains seclusive in his room except for meals. Has now revealed to staff that he hears a number of voices, essentially constantly, arguing among themselves and criticizing him. He does not respond when I ask him about this. He does volunteer that he is "doing a lot of spiritual battles all the time" and that he is "very important in that realm". He feels irritated that this importance isn't recognized by others. He also feels as if "they are going out of their way to disrespect" him, giving as a specific example not being given much of a mean at lunch yesterday - unfortunately, the menu he'd been given had no main selections for him to choose, only salad and roll which he circled and were sent. The nurse did offer to get him more food right away but pt muttered darkly that he anticipated that this would somehow be thwarted (which it wasn't). He says he slept well last night, felt rested this morning, and has not noted any side effects attributable to the medication. Given that he does not subjectively endorse that he has any symptoms at all, it's difficult to ascertain whether he's had any subjective improvement. 07/03/2023: Remains taciturn and seclusive, but has showered and has come out of his room for meals. Communication with me has remained limited to a very few words. Has tolerated increased thiothixene, now at 10 mg BID, for a total of 2 d oses (last evening's and this morning's). He verbalizes his belief that the right dose for him is "2 or 4 milligrams" but has been willing to accept the ordered dose. Remains sufficiently guarded about symptoms such as hallucinations that I've been unable to determine if there's been any change or, indeed, if he's experiencing any at all. He certainly appears to be responding to internal auditory stimuli, but has not acknowledged this to me. 07/02/2023: Monosyllabic, uncooperative. Has not been participating in groups or the milieu. Limited benefit seen thus far from thiothixene, which has been the only antipsychotic he's been willing to consider, at the current dose of 5 mg BID. Maintenance doses are typically 20-30 mg/day with a recommended maximum of 60 mg/day so there's considerable room for adjustment. By history, pt appears to require an LEÓN antipsychotic to function outside the hospital setting; although thiothixene is a thioxanthene, the phenothiazine fluphenazine may be the most similar LEÓN available. If an effective dose of thiothixene can be established, a potentially-equivalent fluphenazine decanoate dose could be estimated based on thiothixene's being about half as potent as oral fluphenazine and the equivalence of fluphenazine decanoate given every 3 weeks at 1.25 x the oral dose (so, e.g., thiothixene 20 mg/day would be about equivalent to fluphenazine decanoate 12.5 mg Q3Wk). (1) Schizophrenia: Plan 07/05/2023: * increase thiothixene to 15 mg BID 07/04/2023: * continue thiothixene 10 mg BID - increased 06/30/2023, started 06/28/2023 at 2 mg BID * Dr. Schultz has documented (on 07/01/2023) her opinion that pt would meet criteria for medication over objection if he were to refuse antipsychotic medication 07/03/2023: * continue thiothixene 10 mg BID - increased 06/30/2023, started 06/28/2023 at 2 mg BID * Dr. Schultz has documented (on 07/01/2023) her opinion that pt would meet criteria for medication over objection if he were to refuse antipsychotic medication 07/02/2023: * increase thiothixene to 10 mg BID (so today would receive total of 15 mg) - increased 06/30/2023, started 06/28/2023 at 2 mg BID * Dr. Schultz has documented (on 07/01/2023) her opinion that pt would meet criteria for medication over objection if he were to refuse antipsychotic medication 07/01/23: 303 granted. will offer increase in Navane to 5 mg this hs with plan for BID. Again, as improves/able will transition to an agent that can be given LEÓN. Invega reportedly caused some GI side effects and unclear that Abilify would cover, ?Haldol dec. If patient should begin to refuse PO antipsychotics during stay, I do feel he would meet criteria for medication over objection as severe negative symptoms with poor self care and aggression toward others prior to admission due to his psychosis. It is my medical opinion that his is at risk of or serious disability within the next 30 days due to his decompensated psychosis without antipsychotic medication. 06/30/23: at this point patient has only voiced willingness to take PO Navane and remains thought blocked so unable to assess tolerability vs. efficacy. Fasting labs reviewed. 303 hearing in am. 06/29/23: continue Navane trial as willing to take PO with hopes to convert to an agent for LEÓN when clearer/more engaged in treatment. Attempt fasting metablic labs and repeat WBC in am. 06/28/23: The patient was admitted to the [facility]) on q15 min checks (behavioral with suicide precautions) for safety. The patient will participate in group, recreational, and milieu therapies and will be offered additional individual and family sessions as clinically appropriate. Will offer Zyprexa 5 mg po q4 hr prn. Currently stating he will only take a typical antipsychotic as standing order and is too thought blocked/paranoid to meaningfully discussed LEÓN. He specifically requests Navane. He was able to voice understanding of increased risks of TD with older agents and feels it will help him rest though unable to state when last took it. It's certainly preferrable to try over medications over objection and hopefully will improve to be able to discuss longer term med plan to improve compliance. Ordered Navane 2 mg BID starting this afternoon. Inventory Assets Strengths: supportive family, hx of positive response to medication Needs: improve reality orientation, med compliance Suicide Risk Level Suicide Risk Level: Low (q15 min observation checks) (has not reported any suicidal thoughts) Risk Factors Assessment Male: Yes : Yes Do You Have Access To A Gun?: No Mental Health Diagnoses: Yes Previous Attempt: No Previous Psychiatric Hospitalization: Yes Protective Factors Assessment Employed: No Supportive Family: Yes Interval History Identifying Information MONSE GALINDO is a 43-year-old M who currently lives in [place] with parents, has a history of noncompliance with medications for schizophrenia, and was admitted on 06/28/23 05:58 on a 302 involuntary commitment for hallucinations and aggression. Chief Complaint "Better". Review of Systems Sleep Information Total Hours of Sleep: 6 Meal Information Percent Meal Consumed - Breakfast: 100 Percent Meal Consumed - Lunch: 100 Percent Meal Consumed - Dinner: 100 Subjective Subjective The patient was seen and assessed and interval progress reviewed in a multidisciplinary team meeting with the treatment team. For details, see the "Impression" section. Overall I spent a total of 36 minutes for this inpatient follow-up including review of chart records, direct evaluation of the patient [id number], counseling the patient, reconciling and ordering medication, risk assessment, discussion during interdisciplinary treatment rounds, and documentation in the electronic health record. Physical Exam Psychiatric Orientation: alert, oriented to person, oriented to place, oriented to time and + guarded Apperance: appropriately groomed Eye Contact: + poor eye contact (avoids eye contact) Motor Behavior: no abnormal motor movements Speech: + abnormal rate/rhythm/volume of speech (uninflected) Affect: + irritable affect and + angry affect Mood: + irritable mood and + angry mood Thought Process: + thought blocking and + concrete thought process Thought Content: + paranoid, + delusions (grandiose faith themes of spiritual warfare) and + ideas of reference Suicidal Thoughts: denies suicidal thoughts Homicidal Thoughts: denies homicidal thoughts Hallucinations: + auditory hallucinations (unclear frequency) Cognition: language grossly intact; + attention not intact Estimated Intelligence: average estimated intelligence Insight: + severely impaired insight Judgment: + impaired judgement Vital Signs (Past 24 Hours) Last Vital Signs Temp 36.4 C 07/05/23 06:19 Pulse 70 07/05/23 06:20 Resp 18 07/05/23 06:19 BP 123/76 07/05/23 06:20 Pulse Ox 97 07/05/23 06:19 O2 Del Method Room Air 07/05/23 06:19 Results & Data ([facility]) Current Inpatient Medications Current Inpatient Medications: Current Inpatient Medications Acetaminophen (Acetaminophen 325 Mg Tab) 650 mg PO Q4H PRN PRN Reason: Headache or Minor Fever Stop: 07/28/23 06:26 Al Hydrox/Mg Hydrox/Simethicone (Aluminum/Magnesium Susp 30 Ml Udc) 30 ml PO Q4H PRN PRN Reason: GI Upset Stop: 07/28/23 06:26 Benztropine Mesylate (Benztropine Mesylate 1 Mg Tab) 1 mg PO Q6 PRN PRN Reason: Muscle Spasm Stop: 07/28/23 11:58 Bismuth Subsalicylate (Bismuth Subsalicylate Liqd 236 Ml) 15 ml PO PRN PRN PRN Reason: Loose Stool Stop: 07/28/23 06:26 Lorazepam (Lorazepam 1 Mg Tab) 1 mg PO Q4 PRN PRN Reason: Agitation Stop: 07/28/23 06:27 Magnesium Hydroxide (Magnesium Hydroxide Susp 30 Ml Udc) 30 ml PO DAILY PRN PRN Reason: Constipation Stop: 07/28/23 06:26 Olanzapine (Olanzapine 5 Mg Tablet) 5 mg PO Q4 PRN PRN Reason: Anxiety/Agitation Stop: 07/28/23 11:59 Sodium Chloride (Sodium Chloride 0.65% Na Soln 45 Ml ([place])) 1 - 2 sprays NA PRN PRN PRN Reason: Nasal Dryness/Congestion Stop: 07/28/23 06:26 Thiothixene (Thiothixene 5 Mg Cap) 10 mg PO BID KAYODE Stop: 08/01/23 20:59 Last Admin: 07/05/23 08:49 Dose: 10 mg Mental Health & Subst Abuse Tx Psychiatrist Name of Psychiatrist: Ben Veronica Psychiatrist's Psychiatric Appointment Comment: [facility] [address], [facility] [address], [place] [id number] Therapist Name of Therapist: None Director It Project Name of Director It Project: None Post Discharge Appointments Primary Care Physician Name Of Family Doctor/PCP: ADAM - Dr. Nolan Primary Care Provider Appointment Comment: [address] [place] [address], [place] [id number] Contact Information Discharge Discharge Address: [facility] [address] [place] [address] (1) Schizophrenia Schizophrenia type: unspecified Qualified Code(s): F20.9 - Schizophrenia, unspecified
[2023-07-05] MEDS ORDERED: THIOTHIXENE 5 MG CAP PO ONE (10:00)
[2023-07-06] MEDS: THIOTHIXENE 5 MG CAP PO SCH ×2 (08:37→21:03)
--- NOTE | 2023-07-06 09:47 | Psychiatric Progress Note ---
Date of Service July 06, 2023 Impression / Recommendations Impression 43 yo male with hx of chronic paranoid delusions and hallucinations, able to remain outside of hospital when compliant with antipsychotic medications (Jet LEÓN), readmit 2nd time this year with med compliance issues and significant decompensation in self care. MNPR secondary to severity of psychosis, recent aggression 07/06/2022: Pt has been somewhat more active, has said he plans to attend groups (but has not yet actually done so). He continues to voice the belief that medication is causing blood pressure problems, today saying "it's been too high" (in fact, it's primarily been low-normal, but this morning was 94/59). He says "the voices are a little less". Rapidly becomes irritated at being "asked so many questions" and shouts that he's fine. 07/05/2023: Says he feels "better", though he's unable to articulate in what way. He denies any adverse effects of medications except "it's messed up my blood pressure". He's unable to explain that any further. Review of vital signs shows little variation in his blood pressure, which has remained within the normal range. He has had some slow heart rates (52-89 BPM) but that has been the case prior to this admission and use of thiothixene. Has spoken more about auditory hallucinations, primarily of a man and a woman, though he has yet to acknowledge this with me. Continues to speak of being engaged in spiritual warfare and of being needed elsewhere in order to engage in this vital task. Complains of "feeling confined". Staff have repeatedly suggested that secluding himself in his room is likely to contribute to this and that getting out into the much larger, more open environment of the unit as a whole would likely help ameliorate the feeling. He has not been amenable to such suggestions. As thiothixene dose has been titrated, pt has been increasingly communicative and is now speaking in complete sentences, albeit still exhibiting uninflected speech. He has more range of affect. He remains guarded and suspicious. 07/04/2023: Very terse and somewhat irritable, but a bit more talkative today. He remains seclusive in his room except for meals. Has now revealed to staff that he hears a number of voices, essentially constantly, arguing among themselves and criticizing him. He does not respond when I ask him about this. He does volunteer that he is "doing a lot of spiritual battles all the time" and that he is "very important in that realm". He feels irritated that this importance isn't recognized by others. He also feels as if "they are going out of their way to disrespect" him, giving as a specific example not being given much of a mean at lunch yesterday - unfortunately, the menu he'd been given had no main selections for him to choose, only salad and roll which he circled and were sent. The nurse did offer to get him more food right away but pt muttered darkly that he anticipated that this would somehow be thwarted (which it wasn't). He says he slept well last night, felt rested this morning, and has not noted any side effects attributable to the medication. Given that he does not subjectively endorse that he has any symptoms at all, it's difficult to ascertain whether he's had any subjective improvement. 07/03/2023: Remains taciturn and seclusive, but has showered and has come out of his room for meals. Communication with me has remained limited to a very few words. Has tolerated increased thiothixene, now at 10 mg BID, for a total of 2 doses (last evening's and this morning's). He verbalizes his belief that the right dose for him is "2 or 4 milligrams" but has been willing to accept the ordered dose. Remains sufficiently guarded about symptoms such as hallucinations that I've been unable to determine if there's been any change or, indeed, if he's experiencing any at all. He certainly appears to be responding to internal auditory stimuli, but has not acknowledged this to me. 07/02/2023: Monosyllabic, uncooperative. Has not been participating in groups or the milieu. Limited benefit seen thus far from thiothixene, which has been the only antipsychotic he's been willing to consider, at the current dose of 5 mg BID. Maintenance doses are typically 20-30 mg/day with a recommended maximum of 60 mg/day so there's considerable room for adjustment. By history, pt appears to require an LEÓN antipsychotic to function outside the hospital setting; although thiothixene is a thioxanthene, the phenothiazine fluphenazine may be the most similar LEÓN available. If an effective dose of thiothixene can be established, a potentially-equivalent fluphenazine decanoate dose could be estimated based on thiothixene's being about half as potent as oral fluphenazine and the equivalence of fluphenazine decanoate given every 3 weeks at 1.25 x the oral dose (so, e.g., thiothixene 20 mg/day would be about equivalent to fluphenazine decanoate 12.5 mg Q3Wk). (1) Schizophrenia: Plan 07/06/2022: * continue thiothixene 15 mg BID 07/05/2023: * increase thiothixene to 15 mg BID 07/04/2023: * continue thiothixene 10 mg BID - increased 06/30/2023, started 06/28/2023 at 2 mg BID * Dr. Schultz has documented (on 07/01/2023) her opinion that pt would meet criteria for medication over objection if he were to refuse antipsychotic medication 07/03/2023: * continue thiothixene 10 mg BID - increased 06/30/2023, started 06/28/2023 at 2 mg BID * Dr. Schultz has documented (on 07/01/2023) her opinion that pt would meet criteria for medication over objection if he were to refuse antipsychotic medication 07/02/2023: * increase thiothixene to 10 mg BID (so today would receive total of 15 mg) - increased 06/30/2023, started 06/28/2023 at 2 mg BID * Dr. Schultz has documented (on 07/01/2023) her opinion that pt would meet criteria for medication over objection if he were to refuse antipsychotic medication 07/01/23: 303 granted. will offer increase in Navane to 5 mg this hs with plan for BID. Again, as improves/able will transition to an agent that can be given LEÓN. Invega reportedly caused some GI side effects and unclear that Abilify would cover, ?Haldol dec. If patient should begin to refuse PO antipsychotics during stay, I do feel he would meet criteria for medication over objection as severe negative symptoms with poor self care and aggression toward others prior to admission due to his psychosis. It is my medical opinion that his is at risk of or serious disability within the next 30 days due to his decompensated psychosis without antipsychotic medication. 06/30/23: at this point patient has only voiced willingness to take PO Navane and remains thought blocked so unable to assess tolerability vs. efficacy. Fasting labs reviewed. 303 hearing in am. 06/29/23: continue Navane trial as willing to take PO with hopes to convert to an agent for LEÓN when clearer/more engaged in treatment. Attempt fasting metablic labs and repeat WBC in am. 06/28/23: The patient was admitted to the [facility] ([facility]) on q15 min checks (behavioral with suicide precautions) for safety. The patient will participate in group, recreational, and milieu therapies and will be offered additional individual and family sessions as clinically appropriate. Will offer Zyprexa 5 mg po q4 hr prn. Currently stating he will only take a typical antipsychotic as standing order and is too thought blocked/paranoid to meaningfully discussed LEÓN. He specifically requests Navane. He was able to voice understanding of increased risks of TD with older agents and feels it will help him rest though unable to state when last took it. It's certainly preferrable to try over medications over objection and hopefully will improve to be able to discuss longer term med plan to improve compliance. Ordered Navane 2 mg BID starting this afternoon. Inventory Assets Strengths: supportive family, hx of positive response to medication Needs: improve reality orientation, med compliance Suicide Risk Level Suicide Risk Level: Low (q15 min observation checks) (has not reported any suicidal thoughts) Risk Factors Assessment Male: Yes : Yes Do You Have Access To A Gun?: No Mental Health Diagnoses: Yes Previous Attempt: No Previous Psychiatric Hospitalization: Yes Protective Factors Assessment Employed: No Supportive Family: Yes Interval History Identifying Information MONSE GALINDO is a 43-year-old M who currently lives in [place] with parents, has a history of noncompliance with medications for schizophrenia, and was admitted on 06/28/23 05:58 on a 302 involuntary commitment for hallucinations and aggression. Chief Complaint "I'm perfectly fine!". Review of Systems Sleep Information Total Hours of Sleep: 4 Meal Information Percent Meal Consumed - Breakfast: 100 Percent Meal Consumed - Lunch: 100 Percent Meal Consumed - Dinner: 100 Subjective Subjective The patient was seen and assessed and interval progress reviewed in a multidisciplinary team meeting with the treatment team. For details, see the "Impression" section. Overall I spent a total of 37 minutes for this inpatient follow-up including review of chart records, direct evaluation of the patient [id number], counseling the patient, risk assessment, discussion during interdisciplinary treatment rounds, and documentation in the electronic health record. Physical Exam Psychiatric Orientation: alert, oriented to person, oriented to place, oriented to time and + guarded Apperance: appropriately groomed Eye Contact: + poor eye contact (avoids eye contact) Motor Behavior: no abnormal motor movements Speech: + abnormal rate/rhythm/volume of speech (uninflected) Affect: + irritable affect Mood: + irritable mood Thought Process: + thought blocking and + concrete thought process Thought Content: + paranoid, + delusions (grandiose moravian themes of spiritual warfare) and + ideas of reference Suicidal Thoughts: denies suicidal thoughts Homicidal Thoughts: denies homicidal thoughts Hallucinations: + auditory hallucinations Cognition: language grossly intact; + attention not intact Estimated Intelligence: average estimated intelligence Insight: + severely impaired insight Judgment: + impaired judgement Vital Signs (Past 24 Hours) Last Vital Signs Temp 36.2 C L 07/06/23 06:17 Pulse 63 07/06/23 06:18 Resp 18 07/06/23 06:17 BP 103/64 07/06/23 06:18 Pulse Ox 96 07/06/23 06:17 O2 Del Method Room Air 07/06/23 06:17 Results & Data ([facility]) Current Inpatient Medications Current Inpatient Medications: Current Inpatient Medications Acetaminophen (Acetaminophen 325 Mg Tab) 650 mg PO Q4H PRN PRN Reason: Headache or Minor Fever Stop: 07/28/23 06:26 Al Hydrox/Mg Hydrox/Simethicone (Aluminum/Magnesium Susp 30 Ml Udc) 30 ml PO Q4H PRN PRN Reason: GI Upset Stop: 07/28/23 06:26 Benztropine Mesylate (Benztropine Mesylate 1 Mg Tab) 1 mg PO Q6 PRN PRN Reason: Muscle Spasm Stop: 07/28/23 11:58 Bismuth Subsalicylate (Bismuth Subsalicylate Liqd 236 Ml) 15 ml PO PRN PRN PRN Reason: Loose Stool Stop: 07/28/23 06:26 Lorazepam (Lorazepam 1 Mg Tab) 1 mg PO Q4 PRN PRN Reason: Agitation Stop: 07/28/23 06:27 Magnesium Hydroxide (Magnesium Hydroxide Susp 30 Ml Udc) 30 ml PO DAILY PRN PRN Reason: Constipation Stop: 07/28/23 06:26 Olanzapine (Olanzapine 5 Mg Tablet) 5 mg PO Q4 PRN PRN Reason: Anxiety/Agitation Stop: 07/28/23 11:59 Sodium Chloride (Sodium Chloride 0.65% Na Soln 45 Ml ([place])) 1 - 2 sprays NA PRN PRN PRN Reason: Nasal Dryness/Congestion Stop: 07/28/23 06:26 Thiothixene (Thiothixene 5 Mg Cap) 15 mg PO BID KAYODE Stop: 08/04/23 20:59 Last Admin: 07/06/23 08:37 Dose: 15 mg Mental Health & Subst Abuse Tx Psychiatrist Name of Psychiatrist: Ben Veronica Psychiatrist's Psychiatric Appointment Comment: [facility] [address], [address], [place] [id number] Therapist Name of Therapist: None Mine Utility Operator Name of Mine Utility Operator: None Post Discharge Appointments Primary Care Physician Name Of Family Doctor/PCP: ADAM Nolan Primary Care Provider Appointment Comment: [address] [place] [address], [place] [id number] Contact Information Discharge Discharge Address: [address] [place] [address] [place] [address] (1) Schizophrenia Schizophrenia type: unspecified Qualified Code(s): F20.9 - Schizophrenia, unspecified
[2023-07-07] MEDS: THIOTHIXENE 5 MG CAP PO SCH ×2 (08:49→20:59)
--- NOTE | 2023-07-07 14:08 | Psychiatric Progress Note ---
Date of Service July 07, 2023 Impression / Recommendations Impression 43 yo male with hx of chronic paranoid delusions and hallucinations, able to remain outside of hospital when compliant with antipsychotic medications (Jet LEÓN), readmit 2nd time this year with med compliance issues and significant decompensation in self care. MNPR secondary to severity of psychosis, recent aggression 07/07/2023: Remains seclusive for the most part and has yet to attend any groups, but has been out of his room for meals and has spent some time in the common area. He reports he's "feeling better" but won't discuss that further other than to say that he "shouldn't be here" because of the "spiritual warfare" in which he needs to engage. He remains fairly irritable and is intolerant of interactions lasting more than a few minutes at a time, though he's reasonably cooperative initially. Thus, over the course of several brief interactions it is possible to get a sense of how he's doing. The treatment team at this point are not certain how far he is from his baseline. He has not exhibited here any aggressive or inappropriate behavior apart from yesterday having shouted at me that he's fine. He has been completely compliant with medication. Based on his previous admission here about a year ago, it doesn't seem as if he has been free from auditory hallucinations or grandiose spiritual beliefs for quite a long time. Based on previous reports of baseline behavior at home (eliminating in a bucket, never leaving his room) it seems as if his behaviors here may be better than that baseline. While I certainly agree with concerns about long-term outcome absent a long- acting injectable antipsychotic, pt's complete willingness to take oral medication and his unobjectionable behavior here would make administering such medication over his objection difficult to justify. We will need to try to get a sense from his parents how his current status compares with the problems at admission and with his longer-term baseline. A challenge with that is their stated disinterest in visiting. 07/06/2022: Pt has been somewhat more active, has said he plans to attend groups (but has not yet actually done so). He continues to voice the belief that medication is causing blood pressure problems, today saying "it's been too high" (in fact, it's primarily been low-normal, but this morning was 94/59). He says "the voices are a little less". Rapidly becomes irritated at being "asked so m any questions" and shouts that he's fine. 07/05/2023: Says he feels "better", though he's unable to articulate in what way. He denies any adverse effects of medications except "it's messed up my bloo d pressure". He's unable to explain that any further. Review of vital signs shows little variation in his blood pressure, which has remained within the normal range. He has had some slow heart rates (52-89 BPM) but that has been the case prior to this admission and use of thiothixene. Has spoken more about auditory hallucinations, primarily of a man and a woman, though he has yet to acknowledge this with me. Continues to speak of being engaged in spiritual warfare and of being needed elsewhere in order to engage in this vital task. Complains of "feeling confined". Staff have repeatedly sugges emilie that secluding himself in his room is likely to contribute to this and that getting out into the much larger, more open environment of the unit as a whole would likely help ameliorate the feeling. He has not been amenable to such suggestions. As thiothixene dose has been titrated, pt has been increasingly communicative and is now speaking in complete sentences, albeit still exhibiting uninflected speech. He has more range of affect. He remains guarded and suspicious. 07/04/2023: Very terse and somewhat irritable, but a bit more talkative today. He remains seclusive in his room except for meals. Has now revealed to staff that he hears a number of voices, essentially constantly, arguing among themselves and criticizing him. He does not respond when I ask him about this. He does volunteer that he is "doing a lot of spiritual battles all the time" and that he is "very important in that realm". He feels irritated that this importance isn't recognized by others. He also feels as if "they are going out of their way to disrespect" him, giving as a specific example not being given much of a mean at lunch yesterday - unfortunately, the menu he'd been given had no main selections for him to choose, only salad and roll which he circled and were sent. The nurse did offer to get him more food right away but pt muttered darkly that he anticipated that this would somehow be thwarted (which it wasn't). He says he slept well last night, felt rested this morning, and has not noted any side effects attributable to the medication. Given that he does not subjectively endorse that he has any symptoms at all, it's difficult to ascertain whether he's had any subjective improvement. 07/03/2023: Remains taciturn and seclusive, but has showered and has come out of his room for meals. Communication with me has remained limited to a very few words. Has tolerated increased thiothixene, now at 10 mg BID, for a total of 2 doses (last evening's and this morning's). He verbalizes his belief that the right dose for him is "2 or 4 milligrams" but has been willing to accept the ordered dose. Remains sufficiently guarded about symptoms such as hallucinations that I've been unable to determine if there's been any change or, indeed, if he's experiencing any at all. He certainly appears to be responding to internal auditory stimuli, but has not acknowledged this to me. 07/02/2023: Monosyllabic, uncooperative. Has not been participating in groups or the milieu. Limited benefit seen thus far from thiothixene, which has been the only antipsychotic he's been willing to consider, at the current dose of 5 mg BID. Maintenance doses are typically 20-30 mg/day with a recommended maximum of 60 mg/day so there's considerable room for adjustment. By history, pt appears to require an LEÓN antipsychotic to function outside the hospital setting; although thiothixene is a thioxanthene, the phenothiazine fluphenazine may be the most similar LEÓN available. If an effective dose of thiothixene can be established, a potentially-equivalent fluphenazine decanoate dose could be estimated based on thiothixene's being about half as potent as oral fluphenazine and the equivalence of fluphenazine decanoate given every 3 weeks at 1.25 x the oral dose (so, e.g., thiothixene 20 mg/day would be about equivalent to fluphenazine decanoate 12.5 mg Q3Wk). (1) Schizophrenia: Plan 07/06/2022: * continue thiothixene 15 mg BID 07/06/2022: * continue thiothixene 15 mg BID 07/05/2023: * increase thiothixene to 15 mg BID 07/04/2023: * continue thiothixene 10 mg BID - increased 06/30/2023, started 06/28/2023 at 2 mg BID * Dr. Schultz has documented (on 07/01/2023) her opinion that pt would meet criteria for medication over objection if he were to refuse antipsychotic medication 07/03/2023: * continue thiothixene 10 mg BID - increased 06/30/2023, started 06/28/2023 at 2 mg BID * Dr. Schultz has documented (on 07/01/2023) her opinion that pt would meet criteria for medication over objection if he were to refuse antipsychotic medication 07/02/2023: * increase thiothixene to 10 mg BID (so today would receive total of 15 mg) - increased 06/30/2023, started 06/28/2023 at 2 mg BID * Dr. Schultz has documented (on 07/01/2023) her opinion that pt would meet criteria for medication over objection if he were to refuse antipsychotic medication 07/01/23: 303 granted. will offer increase in Navane to 5 mg this hs with plan for BID. Again, as improves/able will transition to an agent that can be given LEÓN. Invega reportedly caused some GI side effects and unclear that Abilify would cover, ?Haldol dec. If patient should begin to refuse PO antipsychotics during stay, I do feel he would meet criteria for medication over objection as severe negative symptoms with poor self care and aggression toward others prior to admission due to his psychosis. It is my medical opinion that his is at risk of or serious disability within the next 30 days due to his decompensated psychosis without antipsychotic medication. 06/30/23: at this point patient has only voiced willingness to take PO Navane and remains thought blocked so unable to assess tolerability vs. efficacy. Fasting labs reviewed. 303 hearing in am. 06/29/23: continue Navane trial as willing to take PO with hopes to convert to an agent for LEÓN when clearer/more engaged in treatment. Attempt fasting metablic labs and repeat WBC in am. 06/28/23: The patient was admitted to the [facility] ([facility]) on q15 min checks (behavioral with suicide precautions) for safety. The patient will participate in group, recreational, and milieu therapies and will be offered additional individual and family sessions as clinically appropriate. Will offer Zyprexa 5 mg po q4 hr prn. Currently stating he will only take a typical antipsychotic as standing order and is too thought blocked/paranoid to meaningfully discussed LEÓN. He specifically requests Navane. He was able to voice understanding of increased risks of TD with older agents and feels it will help him rest though unable to state when last took it. It's certainly preferrable to try over medications over objection and hopefully will improve to be able to discuss longer term med plan to improve compliance. Ordered Navane 2 mg BID starting this afternoon. Inventory Assets Strengths: supportive family, hx of positive response to medication Needs: improve reality orientation, med compliance Suicide Risk Level Suicide Risk Level: Low (q15 min observation checks) (has not reported any suicidal thoughts) Risk Factors Assessment Male: Yes : Yes Do You Have Access To A Gun?: No Mental Health Diagnoses: Yes Previous Attempt: No Previous Psychiatric Hospitalization: Yes Protective Factors Assessment Employed: No Supportive Family: Yes Interval History Identifying Information MONSE GALINDO is a 43-year-old M who currently lives in [place] with parents, has a history of noncompliance with medications for schizophrenia, and was admitted on 06/28/23 05:58 on a 302 involuntary commitment for hallucinations and aggression. Chief Complaint "I don't need to be here". Review of Systems Sleep Information Total Hours of Sleep: 5 Meal Information Percent Meal Consumed - Breakfast: 100 Percent Meal Consumed - Lunch: 100 Percent Meal Consumed - Dinner: 100 Subjective Subjective The patient was seen and assessed and interval progress reviewed in a multidisciplinary team meeting with the treatment team. For details, see the "Impression" section. Overall I spent a total of 28 minutes for this inpatient follow-up including review of chart records, direct evaluation of the patient [id number], counseling the patient, risk assessment, discussion during interdisciplinary treatment rounds, and documentation in the electronic health record. Physical Exam Psychiatric Orientation: alert, oriented to person, oriented to place, oriented to time and + guarded Apperance: appropriately groomed Eye Contact: + poor eye contact (avoids eye contact) Motor Behavior: no abnormal motor movements Speech: + abnormal rate/rhythm/volume of speech (uninflected) Affect: + irritable affect Mood: + irritable mood Thought Process: + thought blocking and + concrete thought process Thought Content: + paranoid, + delusions (grandiose confucianist themes of real [place]) and + ideas of reference Suicidal Thoughts: denies suicidal thoughts Homicidal Thoughts: denies homicidal thoughts Hallucinations: + auditory hallucinations Cognition: language grossly intact; + attention not intact Estimated Intelligence: average estimated intelligence Insight: + severely impaired insight Judgment: + impaired judgement Vital Signs (Past 24 Hours) Last Vital Signs Temp 36.4 C L 07/07/23 06:00 Pulse 72 07/07/23 06:00 Resp 18 07/07/23 06:00 BP 115/79 07/07/23 06:05 Pulse Ox 96 07/06/23 06:17 O2 Del Method Room Air 07/06/23 06:17 Results & Data ([facility]) Current Inpatient Medications Current Inpatient Medications: Current Inpatient Medications Acetaminophen (Acetaminophen 325 Mg Tab) 650 mg PO Q4H PRN PRN Reason: Headache or Minor Fever Stop: 07/28/23 06:26 Al Hydrox/Mg Hydrox/Simethicone (Aluminum/Magnesium Susp 30 Ml Udc) 30 ml PO Q4H PRN PRN Reason: GI Upset Stop: 07/28/23 06:26 Benztropine Mesylate (Benztropine Mesylate 1 Mg Tab) 1 mg PO Q6 PRN PRN Reason: Muscle Spasm Stop: 07/28/23 11:58 Bismuth Subsalicylate (Bismuth Subsalicylate Liqd 236 Ml) 15 ml PO PRN PRN PRN Reason: Loose Stool Stop: 07/28/23 06:26 Lorazepam (Lorazepam 1 Mg Tab) 1 mg PO Q4 PRN PRN Reason: Agitation Stop: 07/28/23 06:27 Magnesium Hydroxide (Magnesium Hydroxide Susp 30 Ml Udc) 30 ml PO DAILY PRN PRN Reason: Constipation Stop: 07/28/23 06:26 Olanzapine (Olanzapine 5 Mg Tablet) 5 mg PO Q4 PRN PRN Reason: Anxiety/Agitation Stop: 07/28/23 11:59 Sodium Chloride (Sodium Chloride 0.65% Na Soln 45 Ml ([place])) 1 - 2 sprays NA PRN PRN PRN Reason: Nasal Dryness/Congestion Stop: 07/28/23 06:26 Thiothixene (Thiothixene 5 Mg Cap) 15 mg PO BID KAYODE Stop: 08/04/23 20:59 Last Admin: 07/07/23 08:49 Dose: 15 mg Mental Health & Subst Abuse Tx Psychiatrist Name of Psychiatrist: Ben Veronica Psychiatrist's Date Of Appointment With Psychiatric Provider: 07/28/23 Time of Appointment with Psychiatrist: 2:05 PM arrival Psychiatric Appointment Comment: [address] [place] [address] [place] [phone] Therapist Name of Therapist: None Communications Project Lead Name of Communications Project Lead: None Post Discharge Appointments Primary Care Physician Name Of Family Doctor/PCP: ADAM Nolan Primary Care Provider Appointment Comment: [address] [place] [address] [place] [phone] Contact Information Discharge Discharge [address]: [address] [place] [address] Michele Celestin, [place] [phone] (1) Schizophrenia Schizophrenia type: unspecified Qualified Code(s): F20.9 - Schizophrenia, unspecified
[2023-07-08] MEDS: THIOTHIXENE 5 MG CAP PO SCH ×2 (08:46→21:25)
--- NOTE | 2023-07-08 09:26 | Psychiatric Progress Note ---
Date of Service July 08, 2023 Impression / Recommendations Impression 43 yo male with hx of chronic paranoid delusions and hallucinations, able to remain outside of hospital when compliant with antipsychotic medications (Invega LEÓN), readmit 2nd time this year with med compliance issues and significant decompensation in self care. MNPR secondary to severity of psychosis, recent aggression 07/08/2013: Reports he's feeling "better" today. Is more tolerant of conversations and questions. Was able to attribute improvement to medication and agreed to try further dose increase. Parents finally returned the many calls made to them and have communicated emphatically that they have no intention of allowing pt ever to live with them again, although their home is his legal residence. They are unwilling to provide any specific rationale for this, saying that they've created an extensive document that they expect to review with me later so it can be "presented to the data administrator" but refusing to voice any concerns at all other than that they're afraid of him and that he's "a menace to society". They appear to expect that pt would be committed for life on the basis of this document. By all available data, pt appears to be doing fairly well for him, and has evidenced no aggressive or disorganized behavior whatsoever since admission. Objectively, he should be able to be discharged within a few days. 07/07/2023: Remains seclusive for the most part and has yet to attend any thomas ups, but has been out of his room for meals and has spent some time in the common area. He reports he's "feeling better" but won't discuss that further other than to say that he "shouldn't be here" because of the "spiritual warfare" in which he needs to engage. He remains fairly irritable and is intolerant of interactions lasting more than a few minutes at a time, though he's reasonably cooperative initially. Thus, over the course of several brief interactions it is possible to get a sense of how he's doing. The treatment team at this point are not certain how far he is from his baseline. He has not exhibited here any aggressive or inappropriate behavior apart from yesterday having shouted at me that he's fine. He has been completely compliant with medication. Based on his previous admission here about a year ago, it doesn't seem as if he has been free from auditory hallucinations or grandiose spiritual beliefs for quite a long time. Based on previous reports of baseline behavior at home (eliminating in a bucket, never leaving his room) it seems as if his behaviors here may be better than that baseline. While I certainly agree with concerns about long-term outcome absent a long- acting injectable antipsychotic, pt's complete willingness to take oral medication and his unobjectionable behavior here would make administering such medication over his objection difficult to justify. We will need to try to get a sense from his parents how his current status compares with the problems at admission and with his longer-term baseline. A challenge with that is their stated disinterest in visiting. 07/06/2022: Pt has been somewhat more active, has said he plans to attend groups (but has not yet actually done so). He continues to voice the belief that medication is causing blood pressure problems, today saying "it's been too high" (in fact, it's primarily been low-normal, but this morning was 94/59). He says "the voices are a little less". Rapidly becomes irritated at being "asked so many questions" and shouts that he's fine. 07/05/2023: Says he feels "better", though he's unable to articulate in what way. He denies any adverse effects of medications except "it's messed up my blood pressure". He's unable to explain that any further. Review of vital signs shows little variation in his blood pressure, which has remained within the normal range. He has had some slow heart rates (52-89 BPM) but that has been the case prior to this admission and use of thiothixene. Has spoken more about auditory hallucinations, primarily of a man and a woman, though he has yet to acknowledge this with me. Continues to speak of being engaged in spiritual warfare and of being needed elsewhere in order to engage in this vital task. Complains of "feeling confined". Staff have repeatedly suggested that secluding himself in his room is likely to contribute to this and that getting out into the much larger, more open environment of the unit as a whole would likely help ameliorate the feeling. He has not been amenable to such suggestions. As thiothixene dose has been titrated, pt has been increasingly communicative and is now speaking in complete sentences, albeit still exhibiting uninflected speech. He has more range of affect. He remains guarded and suspicious. 07/04/2023: Very terse and somewhat irritable, but a bit more talkative today. He remains seclusive in his room except for meals. Has now revealed to staff that he hears a number of voices, essentially constantly, arguing among themselves and criticizing him. He does not respond when I ask him about this. He does volunteer that he is "doing a lot of spiritual battles all the time" and that he is "very important in that realm". He feels irritated that this importance isn't recognized by others. He also feels as if "they are going out of their way to disrespect" him, giving as a specific example not being given much of a mean at lunch yesterday - unfortunately, the menu he'd been given had no main selections for him to choose, only salad and roll which he circled and were sent. The nurse did offer to get him more food right away but pt muttered darkly that he anticipated that this would somehow be thwarted (which it wasn't). He says he slept well last night, felt rested this morning, and has not noted any side effects attributable to the medication. Given that he does not subjectively endorse that he has any symptoms at all, it's difficult to ascertain whether he's had any subjective improvement. 07/03/2023: Remains taciturn and seclusive, but has showered and has come out of his room for meals. Communication with me has remained limited to a very few words. Has tolerated increased thiothixene, now at 10 mg BID, for a total of 2 doses (last evening's and this morning's). He verbalizes his belief that the right dose for him is "2 or 4 milligrams" but has been willing to accept the ordered dose. Remains sufficiently guarded about symptoms such as hallucinations that I've been unable to determine if there's been any change or, indeed, if he's experiencing any at all. He certainly appears to be responding to internal auditory stimuli, but has not acknowledged this to me. 07/02/2023: Monosyllabic, uncooperative. Has not been participating in groups or the milieu. Limited benefit seen thus far from thiothixene, which has been the only antipsychotic he's been willing to consider, at the current dose of 5 mg BID. Maintenance doses are typically 20-30 mg/day with a recommended maximum of 60 mg/day so there's considerable room for adjustment. By history, pt appears to require an LEÓN antipsychotic to function outside the hospital setting; although thiothixene is a thioxanthene, the phenothiazine fluphenazine may be the most similar LEÓN available. If an effective dose of thiothixene can be established, a potentially-equivalent fluphenazine decanoate dose could be estimated based on thiothixene's being about half as potent as oral fluphenazine and the equivalence of fluphenazine decanoate given every 3 weeks at 1.25 x the oral dose (so, e.g., thiothixene 20 mg/day would be about equivalent to fluphenazine decanoate 12.5 mg Q3Wk). (1) Schizophrenia: Plan 07/08/2023: * increase thiothixene to 20 mg BID 07/07/2022: * continue thiothixene 15 mg BID 07/06/2022: * continue thiothixene 15 mg BID 07/05/2023: * increase thiothixene to 15 mg BID 07/04/2023: * continue thiothixene 10 mg BID - increased 06/30/2023, started 06/28/2023 at 2 mg BID * Dr. Schultz has documented (on 07/01/2023) her opinion that pt would meet criteri a for medication over objection if he were to refuse antipsychotic medication 07/03/2023: * continue thiothixene 10 mg BID - increased 06/30/2023, started 06/28/2023 at 2 mg BID * Dr. Schultz has documented (on 07/01/2023) her opinion that pt would meet criteria for medication over objection if he were to refuse antipsychotic medication 07/02/2023: * increase thiothixene to 10 mg BID (so today would receive total of 15 mg) - increased 06/30/2023, started 06/28/2023 at 2 mg BID * Dr. Schultz has documented (on 07/01/2023) her opinion that pt would meet criteria for medication over objection if he were to refuse antipsychotic medication 07/01/23: 303 granted. will offer increase in Navane to 5 mg this hs with plan for BID. Again, as improves/able will transition to an agent that can be given LEÓN. Invega reportedly caused some GI side effects and unclear that Abilify would cover, ?Haldol dec. If patient should begin to refuse PO antipsychotics during stay, I do feel he would meet criteria for medication over objection as severe negative symptoms with poor self care and aggression toward others prior to admission due to his psychosis. It is my medical opinion that his is at risk of or serious disability within the next 30 days due to his decompensated psychosis without antipsychotic medication. 06/30/23: at this point patient has only voiced willingness to take PO Navane and remains thought blocked so unable to assess tolerability vs. efficacy. Fasting labs reviewed. 303 hearing in am. 06/29/23: continue Navane trial as willing to take PO with hopes to convert to an agent for LEÓN when clearer/more engaged in treatment. Attempt fasting metablic labs and repeat WBC in am. 06/28/23: The patient was admitted to the [facility] ([facility]) on q15 min checks (behavioral with suicide precautions) for safety. The patient will participate in group, recreational, and milieu therapies and will be offered additional individual and family sessions as clinically appropriate. Will offer Zyprexa 5 mg po q4 hr prn. Currently stating he will only take a typical antipsychotic as standing order and is too thought blocked/paranoid to meaningfully discussed LEÓN. He specifically requests Navane. He was able to voice understanding of increased risks of TD with older agents and feels it will help him rest though unable to state when last took it. It's certainly preferrable to try over medications over objection and hopefully will improve to be able to discuss longer term med plan to improve compliance. Ordered Navane 2 mg BID starting this afternoon. Inventory Assets Strengths: supportive family, hx of positive response to medication Needs: improve reality orientation, med compliance Suicide Risk Level Suicide Risk Level: Low (q15 min observation checks) (has not reported any suicidal thoughts) Risk Factors Assessment Male: Yes : Yes Do You Have Access To A Gun?: No Mental Health Diagnoses: Yes Previous Attempt: No Previous Psychiatric Hospitalization: Yes Protective Factors Assessment Employed: No Supportive Family: Yes Interval History Identifying Information MONSE GALINDO is a 43-year-old M who currently lives in [place] with parents, has a history of noncompliance with medications for schizophrenia, and was admitted on 06/28/23 05:58 on a 302 involuntary commitment for hallucinations and aggression. Chief Complaint "Better today". Review of Systems Sleep Information Total Hours of Sleep: 3.75 Meal Information Percent Meal Consumed - Breakfast: 100 Percent Meal Consumed - Lunch: 100 Percent Meal Consumed - Dinner: 100 Subjective Subjective The patient was seen and assessed and interval progress reviewed in a multidisciplinary team meeting with the treatment team. For details, see the "Impression" section. Overall I spent a total of 28 minutes for this inpatient follow-up including review of chart records, direct evaluation of the patient [id number], counseling the patient, reconciling and ordering medication, medication edu cation with the patient, risk assessment, discussion during interdisciplinary treatment rounds, and documentation in the electronic health record. Physical Exam Psychiatric Orientation: alert, oriented to person, oriented to place, oriented to time and + guarded Apperance: appropriately groomed Eye Contact: + poor eye contact (avoids eye contact) Motor Behavior: no abnormal motor movements Speech: + abnormal rate/rhythm/volume of speech (uninflected) Affect: + irritable affect Mood: + irritable mood Thought Process: + thought blocking and + concrete thought process Thought Content: + paranoid, + delusions (grandi[employer] themes of spiritual warfare) and + ideas of reference Suicidal Thoughts: denies suicidal thoughts Homicidal Thoughts: denies homicidal thoughts Hallucinations: + auditory hallucinations Cognition: language grossly intact; + attention not intact Estimated Intelligence: average estimated intelligence Insight: + severely impaired insight Judgment: + impaired judgement Vital Signs (Past 24 Hours) Last Vital Signs Temp 36.6 C 07/08/23 06:00 Pulse 70 07/08/23 06:14 Resp 18 07/08/23 06:00 BP 123/82 07/08/23 06:14 Pulse Ox 96 07/06/23 06:17 O2 Del Method Room Air 07/06/23 06:17 Results & Data ([facility]) Current Inpatient Medications Current Inpatient Medications: Current Inpatient Medications Acetaminophen (Acetaminophen 325 Mg Tab) 650 mg PO Q4H PRN PRN Reason: Headache or Minor Fever Stop: 07/28/23 06:26 Al Hydrox/Mg Hydrox/Simethicone (Aluminum/Magnesium Susp 30 Ml Udc) 30 ml PO Q4H PRN PRN Reason: GI Upset Stop: 07/28/23 06:26 Benztropine Mesylate (Benztropine Mesylate 1 Mg Tab) 1 mg PO Q6 PRN PRN Reason: Muscle Spasm Stop: 07/28/23 11:58 Bismuth Subsalicylate (Bismuth Subsalicylate Liqd 236 Ml) 15 ml PO PRN PRN PRN Reason: Loose Stool Stop: 07/28/23 06:26 Lorazepam (Lorazepam 1 Mg Tab) 1 mg PO Q4 PRN PRN Reason: Agitation Stop: 07/28/23 06:27 Magnesium Hydroxide (Magnesium Hydroxide Susp 30 Ml Udc) 30 ml PO DAILY PRN PRN Reason: Constipation Stop: 07/28/23 06:26 Olanzapine (Olanzapine 5 Mg Tablet) 5 mg PO Q4 PRN PRN Reason: Anxiety/Agitation Stop: 07/28/23 11:59 Sodium Chloride (Sodium Chloride 0.65% Na Soln 45 Ml ([place])) 1 - 2 sprays NA PRN PRN PRN Reason: Nasal Dryness/Congestion Stop: 07/28/23 06:26 Thiothixene (Thiothixene 5 Mg Cap) 15 mg PO BID KAYODE Stop: 08/04/23 20:59 Last Admin: 07/08/23 08:46 Dose: 15 mg Mental Health & Subst Abuse Tx Psychiatrist Name of Psychiatrist: Ben Veronica Psychiatrist's Date Of Appointment With Psychiatric Provider: 07/28/23 Time of Appointment with Psychiatrist: 2:05 PM arrival Psychiatric Appointment Comment: [address] [place] [id number] Therapist Name of Therapist: None Cigar Tobacco Processing Supervisor Name of Cigar Tobacco Processing Supervisor: None Post Discharge Appointments Primary Care Physician Name Of Family Doctor/PCP: ADAM - Dr. Nolan Primary Care Provider Appointment Comment: [address] [place] [id number] Contact Information Discharge Discharge [address]: [address] [place] [address] [place] [id number] (1) Schizophrenia Schizophrenia type: unspecified Qualified Code(s): F20.9 - Schizophrenia, unspecified
[2023-07-09] MEDS: THIOTHIXENE 5 MG CAP PO SCH ×2 (08:38→20:27)
--- NOTE | 2023-07-09 18:45 | Psychiatric Progress Note ---
Date of Service July 09, 2023 Impression / Recommendations Impression 43 yo male with hx of chronic paranoid delusions and hallucinations, able to remain outside of hospital when compliant with antipsychotic medications (Invega LEÓN), readmit 2nd time this year with med compliance issues and significant decompensation in self care. MNPR secondary to severity of psychosis, recent aggression 07/09/2023: extensive review of communications with pt's parents. While the team is certainly aware of their concerns and can easily imagine how challenging it might be to live with him, pt has maintained appropriate behavior here for 11 days and has consistently accepted medication. There's no basis for the indefinite involuntary admission they envision, even if that were actually to exist, nor any facilities where that could take place. The general suspicion of the team is that pt's family may not tell him of their plan, but have an expectation that if they do pt is likely to have a strong negative emotional response. Section 304 outpatient commitment would make very good sense, so when it's possible to file the relevant documents Tuesday will pursue that. 07/08/2013: Reports he's feeling "better" today. Is more tolerant of conversations and questions. Was able to attribute improvement to medication and agreed to try further dose increase. Parents finally returned the many calls made to them and have communicated emphatically that they have no intention of allowing pt ever to live with them again, although their home is his legal residence. They are unwilling to provide any specific rationale for this, saying that they've created an extensive document that they expect to review with me later so it can be "presented to the cable former" but refusing to voice any concerns at all other than that they're afraid of him and that he's "a menace to society". They appear to expect that pt would be committed for life on the basis of this document. By all available data, pt appears to be doing fairly well for him, and has evidenced no aggressive or disorganized behavior whatsoever since admission. Objectively, he should be able to be discharged within a few days. 07/07/2023: Remains seclusive for the most part and has yet to attend any groups, but has been out of his room for meals and has spent some time in the common area. He reports he's "feeling better" but won't discuss that further other than to say that he "shouldn't be here" because of the "spiritual warfare" in which he needs to engage. He remains fairly irritable and is intolerant of interactions lasting more than a few minutes at a time, though he's reasonably cooperative initially. Thus, over the course of several brief interactions it is possible to get a sense of how he's doing. The treatment team at this point are not certain how far he is from his baseline. He has not exhibited here any aggressive or inappropriate behavior apart from yesterday having shouted at me that he's fine. He has been completely compliant with medication. Based on his previous admission here about a year ago, it doesn't seem as if he has been free from auditory hallucinations or grandiose spiritual beliefs for quite a long time. Based on previous reports of baseline behavior at home (eliminating in a bucket, never leaving his room) it seems as if his behaviors here may be better than that baseline. While I certainly agree with concerns about long-term outcome absent a long- acting injectable antipsychotic, pt's complete willingness to take oral medication and his unobjectionable behavior here would make administering such medication over his objection difficult to justify. We will need to try to get a sense from his parents how his current status compares with the problems at admission and with his longer-term baseline. A challenge with that is their stated disinterest in visiting. 07/06/2022: Pt has been somewhat more active, has said he plans to attend groups (but has not yet actually done so). He continues to voice the belief that medication is causing blood pressure problems, today saying "it's been too high" (in fact, it's primarily been low-normal, but this morning was 94/59). He says "the voices are a little less". Rapidly becomes irritated at being "asked so many questions" and shouts that he's fine. 07/05/2023: Says he feels "better", though he's unable to articulate in what way. He denies any adverse effects of medications except "it's messed up my blood pressure". He's unable to explain that any further. Review of vital signs shows little variation in his blood pressure, which has remained within the normal range. He has had some slow heart rates (52-89 BPM) but that has been the case prior to this admission and use of thiothixene. Has spoken more about auditory hallucinations, primarily of a man and a woman, though he has yet to acknowledge this with me. Continues to speak of being engaged in spiritual warfare and of being needed elsewhere in order to engage in this vital task. Complains of "feeling confined". Staff have repeatedly suggested that secluding himself in his room is likely to contribute to this and that getting out into the much larger, more open environment of the unit as a whole would likely help ameliorate the feeling. He has not been amenable to such suggestions. As thiothixene dose has been titrated, pt has been increasingly communicative and is now speaking in complete sentences, albeit still exhibiting uninflected speech. He has more range of affect. He remains guarded and suspicious. 07/04/2023: Very terse and somewhat irritable, but a bit more talkative today. He remains seclusive in his room except for meals. Has now revealed to staff that he hears a number of voices, essentially constantly, arguing among themselves and criticizing him. He does not respond when I ask him about this. He does volunteer that he is "doing a lot of spiritual battles all the time" and that he is "very important in that realm". He feels irritated that this importance isn't recognized by others. He also feels as if "they are going out of their way to disrespect" him, giving as a specific example not being given much of a mean at lunch yesterday - unfortunately, the menu he'd been given had no main selections for him to choose, only salad and roll which he circled and were sent. The nurse did offer to get him more food right away but pt muttered darkly that he anticipated that this would somehow be thwarted (which it was n't). He says he slept well last night, felt rested this morning, and has not noted any side effects attributable to the medication. Given that he does not subjectively endorse that he has any symptoms at all, it's difficult to ascertain whether he's had any subjective improvement. 07/03/2023: Remains taciturn and seclusive, but has showered and has come out of his room for meals. Communication with me has remained limited to a very few words. Has tolerated increased thiothixene, now at 10 mg BID, for a total of 2 doses (last evening's and this morning's). He verbalizes his belief that the ri ght dose for him is "2 or 4 milligrams" but has been willing to accept the ordered dose. Remains sufficiently guarded about symptoms such as hallucinations that I've been unable to determine if there's been any change or, indeed, if he's experiencing any at all. He certainly appears to be responding to internal auditory stimuli, but has not acknowledged this to me. 07/02/2023: Monosyllabic, uncooperative. Has not been participating in groups or the milieu. Limited benefit seen thus far from thiothixene, which has been the only antipsychotic he's been willing to consider, at the current dose of 5 mg BID. Maintenance doses are typically 20-30 mg/day with a recommended maximum of 60 mg/day so there's considerable room for adjustment. By history, pt appears to require an LEÓN antipsychotic to function outside the hospital setting; although thiothixene is a thioxanthene, the phenothiazine fluphenazine may be the most similar LEÓN available. If an effective dose of thiothixene can be established, a potentially-equivalent fluphenazine decanoate dose could be estimated based on thiothixene's being about half as potent as oral fluphenazine and the equivalence of fluphenazine decanoate given every 3 weeks at 1.25 x the oral dose (so, e.g., thiothixene 20 mg/day would be about equivalent to fluphenazine decanoate 12.5 mg Q3Wk). (1) Schizophrenia: Plan 07/09/2023: * continue thiothixene to 20 mg BID * pursue 304 outpatient commitment * anticipate discharge in 2 days 07/08/2023: * increase thiothixene to 20 mg BID 07/07/2022: * continue thiothixene 15 mg BID 07/06/2022: * continue thiothixene 15 mg BID 07/05/2023: * increase thiothixene to 15 mg BID 07/04/2023: * continue thiothixene 10 mg BID - increased 06/30/2023, started 06/28/2023 at 2 mg BID * Dr. Schultz has documented (on 07/01/2023) her opinion that pt would meet criteria for medication over objection if he were to refuse antipsychotic medication 07/03/2023: * continue thiothixene 10 mg BID - increased 06/30/2023, started 06/28/2023 at 2 mg BID * Dr. Schultz has documented (on 07/01/2023) her opinion that pt would meet criteria for medication over objection if he were to refuse antipsychotic medication 07/02/2023: * increase thiothixene to 10 mg BID (so today would receive total of 15 mg) - increased 06/30/2023, started 06/28/2023 at 2 mg BID * Dr. Schultz has documented (on 07/01/2023) her opinion that pt would meet criteria for medication over objection if he were to refuse antipsychotic medication 07/01/23: 303 granted. will offer increase in Navane to 5 mg this hs with plan for BID. Again, as improves/able will transition to an agent that can be given LEÓN. Invega reportedly caused some GI side effects and unclear that Jessi would cover, ?Haldol dec. If patient should begin to refuse PO antipsychotics during stay, I do feel he would meet criteria for medication over objection as severe negative symptoms with poor self care and aggression toward others prior to admission due to his psychosis. It is my medical opinion that his is at risk of or serious disability within the next 30 days due to his decompensated psychosis without antipsychotic medication. 06/30/23: at this point patient has only voiced willingness to take PO Navane and remains thought blocked so unable to assess tolerability vs. efficacy. Fasting labs reviewed. 303 hearing in am. 06/29/23: continue Navane trial as willing to take PO with hopes to convert to an agent for LEÓN when clearer/more engaged in treatment. Attempt fasting metablic labs and repeat WBC in am. 06/28/23: The patient was admitted to the [facility]) on q15 min checks (behavioral with suicide precautions) for safety. The patient will participate in group, recreational, and milieu therapies and will be offered additional individual and family sessions as clinically appropriate. Will offer Zyprexa 5 mg po q4 hr prn. Currently stating he will only take a typical antipsychotic as standing order and is too thought blocked/paranoid to meaningfully discussed LEÓN. He specifically requests Navane. He was able to voice understanding of increased risks of TD with older agents and feels it will help him rest though unable to state when last took it. It's certainly preferrable to try over medications over objection and hopefully will improve to be able to discuss longer term med plan to improve compliance. Ordered Navane 2 mg BID starting this afternoon. Inventory Assets Strengths: supportive family, hx of positive response to medication Needs: improve reality orientation, med compliance Suicide Risk Level Suicide Risk Level: Low (q15 min observation checks) (has not reported any suicidal thoughts) Risk Factors Assessment Male: Yes : Yes Do You Have Access To A Gun?: No Mental Health Diagnoses: Yes Previous Attempt: No Previous Psychiatric Hospitalization: Yes Protective Factors Assessment Employed: No Supportive Family: Yes Interval History Identifying Information MONSE GALINDO is a 43-year-old M who currently lives in [place] with parents, has a history of noncompliance with medications for schizophrenia, and was admitted on 06/28/23 05:58 on a 302 involuntary commitment for hallucinations and aggression. Chief Complaint "I'm fine. Stop asking". Review of Systems Sleep Information Total Hours of Sleep: 5.45 Sleep Comments: Pt asleep after 2400. Meal Information Percent Meal Consumed - Breakfast: 100 Percent Meal Consumed - Lunch: 100 Percent Meal Consumed - Dinner: 100 Subjective Subjective The patient was seen and assessed and interval progress reviewed in a multidisciplinary team meeting with the treatment team. For details, see the "Impression" section. Overall I spent a total of 26 minutes for this inpatient follow-up including review of chart records, direct evaluation of the patient [id number], counseling the patient, risk assessment, discussion during interdisciplinary treatment rounds, and documentation in the electronic health record. Physical Exam Psychiatric Orientation: alert, oriented to person, oriented to place, oriented to time and + guarded Apperance: appropriately groomed Eye Contact: + poor eye contact (avoids eye contact) Motor Behavior: no abnormal motor movements Speech: + abnormal rate/rhythm/volume of speech (uninflected) Affect: + blunted affect and + irritable affect Mood: + irritable mood Thought Process: + thought blocking and + concrete thought process Thought Content: + paranoid, + delusions (grandiose jewish themes of spiritual warfare) and + ideas of reference Suicidal Thoughts: denies suicidal thoughts Homicidal Thoughts: denies homicidal thoughts Hallucinations: + auditory hallucinations Cognition: language grossly intact; + attention not intact Estimated Intelligence: average estimated intelligence Insight: + severely impaired insight Judgment: + impaired judgement Vital Signs (Past 24 Hours) Last Vital Signs Temp 36.6 C 07/09/23 06:46 Pulse 55 L 07/09/23 06:46 Resp 16 07/09/23 06:46 BP 117/73 07/09/23 06:46 Pulse Ox 96 07/09/23 06:46 O2 Del Method Room Air 07/09/23 06:46 Results & Data ([facility]) Current Inpatient Medications Current Inpatient Medications: Current Inpatient Medications Acetaminophen (Acetaminophen 325 Mg Tab) 650 mg PO Q4H PRN PRN Reason: Headache or Minor Fever Stop: 07/28/23 06:26 Al Hydrox/Mg Hydrox/Simethicone (Aluminum/Magnesium Susp 30 Ml Udc) 30 ml PO Q4H PRN PRN Reason: GI Upset Stop: 07/28/23 06:26 Benztropine Mesylate (Benztropine Mesylate 1 Mg Tab) 1 mg PO Q6 PRN PRN Reason: Muscle Spasm Stop: 07/28/23 11:58 Bismuth Subsalicylate (Bismuth Subsalicylate Liqd 236 Ml) 15 ml PO PRN PRN PRN Reason: Loose Stool Stop: 07/28/23 06:26 Lorazepam (Lorazepam 1 Mg Tab) 1 mg PO Q4 PRN PRN Reason: Agitation Stop: 07/28/23 06:27 Magnesium Hydroxide (Magnesium Hydroxide Susp 30 Ml Udc) 30 ml PO DAILY PRN PRN Reason: Constipation Stop: 07/28/23 06:26 Olanzapine (Olanzapine 5 Mg Tablet) 5 mg PO Q4 PRN PRN Reason: Anxiety/Agitation Stop: 07/28/23 11:59 Sodium Chloride (Sodium Chloride 0.65% Na Soln 45 Ml (Wetzel)) 1 - 2 sprays NA PRN PRN PRN Reason: Nasal Dryness/Congestion Stop: 07/28/23 06:26 Thiothixene (Thiothixene 5 Mg Cap) 20 mg PO BID KAYODE Stop: 08/07/23 20:59 Last Admin: 07/09/23 08:38 Dose: 20 mg Mental Health & Subst Abuse Tx Psychiatrist Name of Psychiatrist: Ben Veronica Psychiatrist's Date Of Appointment With Psychiatric Provider: 07/28/23 Time of Appointment with Psychiatrist: 2:05 PM arrival Psychiatric Appointment Comment: [address] [place], [place] [address] [address] Therapist Name of Therapist: None Gas Engine Operator Name of Gas Engine Operator: None Post Discharge Appointments Primary Care Physician Name Of Family Doctor/PCP: ADAM Nolan Primary Care Provider Appointment Comment: [address] [place] [address] [place] [id number] Contact Information Discharge Discharge Address: [facility] [address] [place] [address] (1) Schizophrenia Schizophrenia type: unspecified Qualified Code(s): F20.9 - Schizophrenia, unspecified
[2023-07-10] MEDS: THIOTHIXENE 5 MG CAP PO SCH ×2 (08:53→20:38)
--- NOTE | 2023-07-10 10:03 | Psychiatric Progress Note ---
Date of Service July 10, 2023 Impression / Recommendations Impression 43 yo male with hx of chronic paranoid delusions and hallucinations, able to remain outside of hospital when compliant with antipsychotic medications (Invega LEÓN), readmit 2nd time this year with med compliance issues and significant decompensation in self care. MNPR secondary to severity of psychosis, recent aggression 07/10/2023: More interactive and talkative today than he has been with me previously. His parents told him that he can't return to their (his) home and his reaction has been philosophical - "well, I didn't really want to be there in the first place". He says he has another place he can go but that it's secret. This seems to be the home of an aunt and uncle, extrapolating from other statements, but he doesn't know their number and doesn't want to tell us their names so we can look up their number. He asked for a "phone book", an item with which people ~35 y/o and up are familiar but which as far as I'm aware no longer exist. We will continue to try to help him get in touch with them. Reports thinking "the medication is too strong" due to feeling sedated. 07/09/2023: extensive review of communications with pt's parents. While the team is certainly aware of their concerns and can easily imagine how challenging it might be to live with him, pt has maintained appropriate behavior here for 11 days and has consistently accepted medication. There's no basis for the indefinite involuntary admission they envision, even if that were actually to exist, nor any facilities where that could take place. The general suspicion of the team is that pt's family may not tell him of their plan, but have an expectation that if they do pt is likely to have a strong negative emotional response. Section 304 outpatient commitment would make very good sense, so when it's possible to file the relevant documents Tuesday morning will pursue that. 07/08/2013: Reports he's feeling "better" today. Is more tolerant of conversations and questions. Was able to attribute improvement to medication and agreed to try further dose increase. Parents finally returned the many calls made to them and have communicated emphatically that they have no intention of allowing pt ever to live with them again, although their home is his legal residence. 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 They appear to expect that pt would be committed for life on the basis of this document. By all available data, pt appears to be doing fairly well for him, and has evidenced no aggressive or disorganized behavior whatsoever since admission. O bjectively, he should be able to be discharged within a few days. 07/07/2023: Remains seclusive for the most part and has yet to attend any groups, but has been out of his room for meals and has spent some time in the common area. He reports he's "feeling better" but won't discuss that further other than to say that he "shouldn't be here" because of the "spiritual warfare" in which he needs to engage. He remains fairly irritable and is intolerant of interactions lasting more than a few minutes at a time, though he's reasonably cooperative initially. Thus, over the course of several brief interactions it is possible to get a sense of how he's doing. The treatment team at this point are not certain how far he is from his baseline. He has not exhibited here any aggressive or inappropriate behavior apart from yesterday having shouted at me that he's fine. He has been completely compliant with medication. Based on his previous admission here about a year ago, it doesn't seem as if he has been free from auditory hallucinations or grandiose spiritual beliefs for quite a long time. Based on previous reports of baseline behavior at home (eliminating in a bucket, never leaving his room) it seems as if his behaviors here may be better than that baseline. While I certainly agree with concerns about long-term outcome absent a long- acting injectable antipsychotic, pt's complete willingness to take oral medication and his unobjectionable behavior here would make administering such medication over his objection difficult to justify. We will need to try to get a sense from his parents how his current status compares with the problems at admission and with his longer-term baseline. A challenge with that is their stated disinterest in visiting. 07/06/2022: Pt has been somewhat more active, has said he plans to attend groups (but has not yet actually done so). He continues to voice the belief that medication is causing blood pressure problems, today saying "it's been too high" (in fact, it's primarily been low-normal, but this morning was 94/59). He says "the voices are a little less". Rapidly becomes irritated at being "asked so many questions" and shouts that he's fine. 07/05/2023: Says he feels "better", though he's unable to articulate in what way. He denies any adverse effects of medications except "it's messed up my blood pressure". He's unable to explain that any further. Review of vital signs shows little variation in his blood pressure, which has remained within the normal range. He has had some slow heart rates (52-89 BPM) but that has been the case prior to this admission and use of thiothixene. Has spoken more about auditory hallucinations, primarily of a man and a woman, though he has yet to acknowledge this with me. Continues to speak of being eng aged in spiritual warfare and of being needed elsewhere in order to engage in this vital task. Complains of "feeling confined". Staff have repeatedly suggested that secluding himself in his room is likely to contribute to this and that getting out into the much larger, more open environment of the unit as a whole would likely help ameliorate the feeling. He has not been amenable to such suggestions. As thiothixene dose has been titrated, pt has been increasingly communicative and is now speaking in complete sentences, albeit still exhibiting uninflected speech. He has more range of affect. He remains guarded and suspicious. 07/04/2023: Very terse and somewhat irritable, but a bit more talkative today. He remains seclusive in his room except for meals. Has now revealed to staff that he hears a number of voices, essentially constantly, arguing among themselves and criticizing him. He does not respond when I ask him about this. He does volunteer that he is "doing a lot of spiritual battles all the time" and that he is "very important in that realm". He feels irritated that this importance isn't recognized by others. He also feels as if "they are going out of their way to disrespect" him, giving as a specific example not being given much of a mean at lunch yesterday - unfortunately, the menu he'd been given had no main selections for him to choose, only salad and roll which he circled and were sent. The nurse did offer to get him more food right away but pt muttered darkly that he anticipated that this would somehow be thwarted (which it wasn't). He says he slept well last night, felt rested this morning, and has not noted any side effects attributable to the medication. Given that he does not subjectively endorse that he has any symptoms at all, it's difficult to ascert ain whether he's had any subjective improvement. 07/03/2023: Remains taciturn and seclusive, but has showered and has come out of his room for meals. Communication with me has remained limited to a very few words. Has tolerated increased thiothixene, now at 10 mg BID, for a total of 2 doses (last evening's and this morning's). He verbalizes his belief that the right dose for him is "2 or 4 milligrams" but has been willing to accept the ordered dose. Remains sufficiently guarded about symptoms such as hallucinations that I've been unable to determine if there's been any change or, indeed, if h e's experiencing any at all. He certainly appears to be responding to internal auditory stimuli, but has not acknowledged this to me. 07/02/2023: Monosyllabic, uncooperative. Has not been participating in groups or the milieu. Limited benefit seen thus far from thiothixene, which has been the only antipsychotic he's been willing to consider, at the current dose of 5 mg BID. Maintenance doses are typically 20-30 mg/day with a recommended maximum of 60 mg/day so there's considerable room for adjustment. By history, pt appears to require an LEÓN antipsychotic to function outside the hospital setting; although thiothixene is a thioxanthene, the phenothiazine fluphenazine may be the most similar LEÓN available. If an effective dose of thiothixene can be established, a potentially-equivalent fluphenazine decanoate dose could be estimated based on thiothixene's being about half as potent as oral fluphenazine and the equivalence of fluphenazine decanoate given every 3 weeks at 1.25 x the oral d ose (so, e.g., thiothixene 20 mg/day would be about equivalent to fluphenazine decanoate 12.5 mg Q3Wk). (1) Schizophrenia: Plan 07/10/2023: * decrease thiothixene to 15 mg BID * pursue 304 outpatient commitment * anticipate discharge soon 07/09/2023: * continue thiothixene to 20 mg BID * pursue 304 outpatient commitment * anticipate discharge in 2 days 07/08/2023: * increase thiothixene to 20 mg BID 07/07/2022: * continue thiothixene 15 mg BID 07/06/2022: * continue thiothixene 15 mg BID 07/05/2023: * increase thiothixene to 15 mg BID 07/04/2023: * continue thiothixene 10 mg BID - increased 06/30/2023, started 06/28/2023 at 2 mg BID * Dr. Schultz has documented (on 07/01/2023) her opinion that pt would meet criteria for medication over objection if he were to refuse antipsychotic medication 07/03/2023: * continue thiothixene 10 mg BID - increased 06/30/2023, started 06/28/2023 at 2 mg BID * Dr. Schultz has documented (on 07/01/2023) her opinion that pt would meet criteria for medication over objection if he were to refuse antipsychotic medication 07/02/2023: * increase thiothixene to 10 mg BID (so today would receive total of 15 mg) - increased 06/30/2023, started 06/28/2023 at 2 mg BID * Dr. Schultz has documented (on 07/01/2023) her opinion that pt would meet criteria for medication over objection if he were to refuse antipsychotic medication 07/01/23: 303 granted. will offer increase in Navane to 5 mg this hs with plan for BID. Again, as improves/able will transition to an agent that can be given LEÓN. Invega reportedly caused some GI side effects and unclear that Abilify would cover, ?Haldol dec. If patient should begin to refuse PO antipsychotics during stay, I do feel he would meet criteria for medication over objection as severe negative symptoms with poor self care and aggression toward others prior to admission due to his psychosis. It is my medical opinion that his is at risk of or serious disability within the next 30 days due to his decompensated psychosis without antipsychotic medication. 06/30/23: at this point patient has only voiced willingness to take PO Navane and remains thought blocked so unable to assess tolerability vs. efficacy. Fasting labs reviewed. 303 hearing in am. 06/29/23: continue Navane trial as willing to take PO with hopes to convert to an agent for LEÓN when clearer/more engaged in treatment. Attempt fasting metablic labs and repeat WBC in am. 06/28/23: The patient was admitted to the [facility] ([facility]) on q15 min checks (behavioral with suicide precautions) for safety. The patient will participate in group, recreational, and milieu therapies and will be offered additional individual and family sessions as clinically appropriate. Will offer Zyprexa 5 mg po q4 hr prn. Currently stating he will only take a typical antipsychotic as standing order and is too thought blocked/paranoid to meaningfully discussed LEÓN. He specifically requests Navane. He was able to voice understanding of increased risks of TD with older agents and feels it will help him rest though unable to state when last took it. It's certainly preferrable to try over medications over objection and hopefully will improve to be able to discuss longer term med plan to improve compliance. Ordered Navane 2 mg BID starting this afternoon. Inventory Assets Strengths: supportive family, hx of positive response to medication Needs: improve reality orientation, med compliance Suicide Risk Level Suicide Risk Level: Low (q15 min observation checks) (has not reported any suicidal thoughts) Risk Factors Assessment Male: Yes : Yes Do You Have Access To A Gun?: No Mental Health Diagnoses: Yes Previous Attempt: No Previous Psychiatric Hospitalization: Yes Protective Factors Assessment Employed: No Supportive Family: Yes Interval History Identifying Information MONSE GALINDO is a 43-year-old M who currently lives in [place] with parents, has a history of noncompliance with medications for schizophrenia, and was admitted on 06/28/23 05:58 on a 302 involuntary commitment for hallucinations and aggression. Chief Complaint "I'm OK". Review of Systems Sleep Information Total Hours of Sleep: 6.45 Sleep Comments: Pt to bed at 2100 and awake at 0445. Meal Information Percent Meal Consumed - Breakfast: 100 Percent Meal Consumed - Lunch: 100 Percent Meal Consumed - Dinner: 100 Subjective Subjective The patient was seen and assessed and interval progress reviewed in a multidisciplinary team meeting with the treatment team. For details, see the "Impression" section. Overall I spent a total of 42 minutes for this inpatient follow-up including review of chart records, review of test results, direct evaluation of the patient [id number], counseling the patient, reconciling and ordering medication, risk assessment, discussion during interdisciplinary treatment rounds, and documentation in the electronic health record. Physical Exam Psychiatric Orientation: alert, oriented to person, oriented to place, oriented to time and + guarded Apperance: appropriately groomed Eye Contact: + poor eye contact (avoids eye contact) Motor Behavior: no abnormal motor movements Speech: + abnormal rate/rhythm/volume of speech (uninflected) Affect: + blunted affect and + irritable affect Mood: + irritable mood Thought Process: + thought blocking and + concrete thought process Thought Content: + paranoid, + delusions (grandiose amish themes of spiritual warfare) and + ideas of reference Suicidal Thoughts: denies suicidal thoughts Homicidal Thoughts: denies homicidal thoughts Hallucinations: + auditory hallucinations Cognition: language grossly intact; + attention not intact Estimated Intelligence: average estimated intelligence Insight: + severely impaired insight Judgment: + impaired judgement Vital Signs (Past 24 Hours) Last Vital Signs Temp 36.5 C 07/10/23 06:08 Pulse 59 L 07/10/23 06:09 Resp 16 07/10/23 06:08 BP 111/74 07/10/23 06:09 Pulse Ox 96 07/09/23 06:46 O2 Del Method Room Air 07/10/23 06:08 Results & Data ([facility]) Current Inpatient Medications Current Inpatient Medications: Current Inpatient Medications Acetaminophen (Acetaminophen 325 Mg Tab) 650 mg PO Q4H PRN PRN Reason: Headache or Minor Fever Stop: 07/28/23 06:26 Al Hydrox/Mg Hydrox/Simethicone (Aluminum/Magnesium Susp 30 Ml Udc) 30 ml PO Q4H PRN PRN Reason: GI Upset Stop: 07/28/23 06:26 Benztropine Mesylate (Benztropine Mesylate 1 Mg Tab) 1 mg PO Q6 PRN PRN Reason: Muscle Spasm Stop: 07/28/23 11:58 Bismuth Subsalicylate (Bismuth Subsalicylate Liqd 236 Ml) 15 ml PO PRN PRN PRN Reason: Loose Stool Stop: 07/28/23 06:26 Lorazepam (Lorazepam 1 Mg Tab) 1 mg PO Q4 PRN PRN Reason: Agitation Stop: 07/28/23 06:27 Magnesium Hydroxide (Magnesium Hydroxide Susp 30 Ml Udc) 30 ml PO DAILY PRN PRN Reason: Constipation Stop: 07/28/23 06:26 Olanzapine (Olanzapine 5 Mg Tablet) 5 mg PO Q4 PRN PRN Reason: Anxiety/Agitation Stop: 07/28/23 11:59 Sodium Chloride (Sodium Chloride 0.65% Na Soln 45 Ml ([place])) 1 - 2 sprays NA PRN PRN PRN Reason: Nasal Dryness/Congestion Stop: 07/28/23 06:26 Thiothixene (Thiothixene 5 Mg Cap) 20 mg PO BID KAYODE Stop: 08/07/23 20:59 Last Admin: 07/10/23 08:53 Dose: 20 mg Mental Health & Subst Abuse Tx Psychiatrist Name of Psychiatrist: Ben Veronica Psychiatrist's Date Of Appointment With Psychiatric Provider: 07/28/23 Time of Appointment with Psychiatrist: 2:05 PM arrival Psychiatric Appointment Comment: [address] [place], [place] [address] [place] [address] Therapist Name of Therapist: None Hospice Care Transitions Coordinator Name of Hospice Care Transitions Coordinator: None Post Discharge Appointments Primary Care Physician Name Of Family Doctor/PCP: ADAM Nolan Primary Care Provider Appointment Comment: [address] [place] [address] [place] [address] Contact Information Discharge Discharge [address]: [address] [place] [address] [place] [address] (1) Schizophrenia Schizophrenia type: unspecified Qualified Code(s): F20.9 - Schizophrenia, un specified
[2023-07-11] MEDS: THIOTHIXENE 5 MG CAP PO SCH ×2 (09:36→20:06)
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
[2023-07-12] MEDS: THIOTHIXENE 5 MG CAP PO SCH (08:56)
--- NOTE | 2023-07-12 10:18 | Discharge Summary ---
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 unable to reach your providers, please call the [facility] CRISIS LINE AT , go to the [facility] walk-in center at [address], [address], [place], or go to the closest Emergency Room. 5. Avoid alcohol and un-prescribed drugs. 6. You have been provided with the Mental Health Advance Directives Pamphlet for your review. 7. Your condition is stable for discharge to outpatient level of care, but recovery is an ongoing process. Ifthoughts to harm yourself or others return, follow the safety plan developed during your stay. Planning for a safe return home includes securing weapons. Our treatment team recommends weaponsbe removed from the home until your outpatient provider reassesses your progress. In rare cases where the items themselvescannot be removed, guns and ammunitionshould be secured separatelyand keys stored by a reliable personoutside of the home. If you were admitted on an involuntary commitment, the police or other legal authorities may be involved in this process. AFTERCARE APPOINTMENTS: * Please call your insurance company prior to your scheduled appointment to confirm your aftercare providers are covered. Take your insurance information to your [email or web address]. WHO TO CALL AND WHEN: Medical Emergencies: For questions or emergencies related to your hospital stay, please contact the Inpatient Behavioral Health Unit at [phone]. A senior product development manager is on-call 24/01 for the Behavioral Health Unit for emergencies At any time you feel your situation is an emergency, you may also call 911 immediately. Stand-Alone Forms: My [facility], Smoking Cessation Medications and DC Order Prescriptions: New thiothixene 5 mg Capsule 15 mg PO BID 30 Days Qty: 180 0RF Discharge Orders: Discharge Order (Routine); Ordered 07/12/23 Ordered By: Aaron Oakes Admission Data Admit Date/Time: 06/28/23 05:58 Attending Provider: Aaron Oakes Admit Provider: Angie Schultz Primary Care Provider: PCP,NO Other Interventions: Discharge Summary Assessment (RN) Last Done: 07/12/23 09:46 PSY Interdisciplinary Discharge Planning Last Done: 07/12/23 09:51 Coding Level of Care Code 10983 D/C day mgmt > 30 min Diagnoses Schizophrenia F20.9 Schizophrenia type: unspecified Time Spent (min) 55
[2023-07-12] MEDS ORDERED: THIOTHIXENE 5 MG CAP PO SCH (21:00)
== END 2023-07-12 13:30 | disposition home or self-care (01) | DRG 885 ==
LOC: ED 02:14 → 3S 05:58 → SUATTDRO 05:58 → 3S 06:40